=== PATIENT | male | born 1945 | race Asian ===

== ENCOUNTER 2018-05-13 12:38 | Inpatient (IN) | payer MEDICARE, OTHER ==
[2018-05-13 13:19] LABS: BASOPHILE ABSOLUTE 0.2 Th/cumm (0-0.2); MEAN CELL VOLUME 99.5 fl (80-99); MEAN CORPUSCULAR HEMOGLOBIN 33.2 pg (27.0-31.0); MEAN CORPUSCULAR HGB CONC 33.4 pg (28.0-36.0); MEAN PLATELET VOLUME 6.4 fl; MONOCYTE ABSOLUTE 1.8 Th/cmm (0.3-1.0); NEUTROPHILE ABSOLUTE 20.4 Th/cmm (1.8-8.0); PLATELET COUNT 345 Th/cmm (150-400); RED BLOOD COUNT 3.92 Mil/cmm (3.80-5.80); RED CELL DISTRIBUTION WIDTH 11.7 % (11.5-20.0)
--- NOTE | 2018-05-13 13:19 | ED Physician Chart ---
ED Chief Complaint/HPI - Patient Information Date Seen:: 05/13/18 Time Seen:: 12:55 Chief Complaint:: having trouble urinating History of Present Illness:: this is a 73 yo male with the sudden onset of difficulty with urination. he has a history of hypertension but no heart disease. the patient also has a fever. this patient also has diabetes. Allergies:: Allergies Allergy/AdvReac Type Severity Reaction Status Date / Time No Known Allergies Allergy Verified 05/13/18 12:49 Vitals:: Vital Signs - 8 hr 05/13/18 12:49 Temp 100.3 F HR 108 RR 18 BP 125/72 O2 Sat % 97 Historian:: Patient, Family Member (daughter) Review:: Nurse's Note Reviewed ED Review of Systems - Review of Systems General/Constitutional: No fever, No chills, No weight loss, No weakness, No diaphoresis, No edema, No loss of appetite Skin: No skin lesions, No rash, No bruising Head: No headache, No light-headedness Eyes: No loss of vision, No pain, No diplopia ENT: No earache, No nasal drainage, No sore throat, No tinnitus Neck: No neck pain, No swelling, No thyromegaly, No stiffness, No mass noted Cardio Vascular: No chest pain, No palpitations, No PND, No orthopnea, No edema Pulmonary: No SOB, No cough, No sputum, No wheezing GI: No nausea, No vomiting, No diarrhea, No pain, No melena, No hematochezia, No constipation, No hematemesis G/U: Dysuria, No frequency, No hematuria Musculoskeletal: No bone or joint pain, No back pain, No muscle pain Endocrine: No polyuria, No polydipsia Psychiatric: No prior psych history, No depression, No anxiety, No suicidal ideation Hematopoietic: No bruising, No lymphadenopathy Allergic/Immuno: No urticaria, No angioedema Neurological: No syncope, No focal symptoms, No weakness, No paresthesia, No headache, No seizure, No dizziness, No confusion, No vertigo ED Past Medical History - Past Medical History Obtainable: Yes Past Medical History: HTN, DM Family History: None Social History: Non Smoker, No Alcohol, No Drug Use Family Medical History - Family Member Mother History Unknown: Yes ED Physical Exam - Physical Examination General/Constitutional: Awake, Well-developed, well-nourished, Alert, No distress, GCS 15, Non-toxic appearing, Ambulatory Head: Atraumatic Eyes: Lids, conjuctiva normal, PERRL, EOMI Skin: Nl inspection, No rash, No skin lesions, No ecchymosis, Well hydrated, No lymphadenopathy ENMT: External ears, nose nl, Nasal exam nl, Lips, teeth, gums nl Neck: Nontender, Full ROM w/o pain, No JVD, No nuchal rigidity, No bruit, No mass, No stridor Respiratory: Nl effort/Exclusion, Clear to Auscultation, No Wheeze/Rhonchi/Rales Cardio Vascular: RRR, No murmur, gallop, rubs, NL S1 S2 GI: No organomegaly, No hernia, Normal BS's, Nondistended, No mass/bruits, No McBurney tenderness Other GI comments:: there is generalized diffuse abdominal pain with distension : No CVA tenderness Other comments:: bladder area distention minimal tenderness of the abdomen Extremities: No tenderness or effusion, Full ROM, normal strength in all extremities, No edema, Normal digits & nails Neuro/Psych: Alert/oriented, DTR's symmetric, Normal sensory exam, Normal motor strength, Judgement/insight normal, Mood normal, Normal gait, No focal deficits Misc: Normal back, No paraspinal tenderness ED Labs/Radiology/EKG Results - Lab Results Results: Laboratory Tests 05/13/18 13:09 POC Glucose 361 H Abnormal Lab Results 05/13/18 05/13/18 05/13/18 13:00 13:05 13:05 WBC 23.4 H* RBC 3.92 Hgb 13.0 Hct 39.0 L MCV 99.5 H MCH 33.2 H MCHC Differential 33.4 RDW 11.7 Plt Count 345 MPV 6.4 Add Manual Diff YES Band Neutrophils % 3 Neutrophils (Manual) 86 H Lymphocytes 8 L Monocytes 3 PT 11.2 INR 1.08 PTT (Actin FS) 32.7 Sodium Potassium Chloride Carbon Dioxide Anion Gap BUN Creatinine Est GFR ( Amer) Est GFR (Non-Af Amer) BUN/Creatinine Ratio Glucose POC Glucose Whole Bld Lactic Acid Calcium Total Bilirubin AST ALT Alkaline Phosphatase Troponin I Total Protein Albumin Globulin Albumin/Globulin Ratio Amylase TSH Urine Source [place] Urine Color YELLOW Urine Clarity HAZY Urine pH 5.5 Ur Specific [place] 1.025 Urine Protein 100 H Urine Glucose (UA) 100 H Urine Ketones NEGATIVE Urine Blood MODERATE H Urine Nitrate NEGATIVE Urine Bilirubin SMALL H Urine Urobilinogen 1.0 Ur Leukocyte Esterase SMALL H Urine RBC NONE SEEN Urine WBC 2-5 Ur Epithelial Cells NONE SEEN Urine Bacteria OCCASIONAL 05/13/18 05/13/18 05/13/18 13:05 13:05 13:05 WBC RBC Hgb Hct MCV MCH MCHC Differential RDW Plt Count MPV Add Manual Diff Band Neutrophils % Neutrophils (Manual) Lymphocytes Monocytes PT INR PTT (Actin FS) Sodium 126 L Potassium 3.8 Chloride 89 L Carbon Dioxide 26.4 Anion Gap 14.4 BUN 30 H Creatinine 1.7 H Est GFR ( Amer) TNP Est GFR (Non-Af Amer) TNP BUN/Creatinine Ratio 17.6 Glucose 363 H POC Glucose Whole Bld Lactic Acid Calcium 9.8 Total Bilirubin 1.4 H AST 14 ALT 12 Alkaline Phosphatase 52 Troponin I 0.04 Total Protein 7.8 Albumin 4.0 L Globulin 3.8 Albumin/Globulin Ratio 1.1 Amylase TSH 0.84 Urine Source Urine Color Urine Clarity Urine pH Ur Specific [place] Urine Protein Urine Glucose (UA) Urine Ketones Urine Blood Urine Nitrate Urine Bilirubin Urine Urobilinogen Ur Leukocyte Esterase Urine RBC Urine WBC Ur Epithelial Cells Urine Bacteria 05/13/18 05/13/18 05/13/18 13:05 13:09 13:10 WBC RBC Hgb Hct MCV MCH MCHC Differential RDW Plt Count MPV Add Manual Diff Band Neutrophils % Neutrophils (Manual) Lymphocytes Monocytes PT INR PTT (Actin FS) Sodium Potassium Chloride Carbon Dioxide Anion Gap BUN Creatinine Est GFR ( Amer) Est GFR (Non-Af Amer) BUN/Creatinine Ratio Glucose POC Glucose 361 H Whole Bld Lactic Acid 1.76 Calcium Total Bilirubin AST ALT Alkaline Phosphatase Troponin I Total Protein Albumin Globulin Albumin/Globulin Ratio Amylase 21 L TSH Urine Source Urine Color Urine Clarity Urine pH Ur Specific [place] Urine Protein Urine Glucose (UA) Urine Ketones Urine Blood Urine Nitrate Urine Bilirubin Urine Urobilinogen Ur Leukocyte Esterase Urine RBC Urine WBC Ur Epithelial Cells Urine Bacteria - Radiology Results Results: ct scan = distended stomach gallstones enlarged prostate chest x-ray = cardiomegaly - EKG Interpretations EKG Time:: 14:40 Rate & Rhythm: rate= 100, sinus [place]: right ED Assessment - Assessment General Assessment: fever, gastric distention, uti ED Septic Shock - . Is Septic Shock (SBP<90, OR Lactate>4 mmol\L) present?: No - <6hrs of presentation: Vital Signs: Vital Signs - 8 hr 05/13/18 12:49 Temp 100.3 F HR 108 RR 18 BP 125/72 O2 Sat % 97 ED Reassessment (Disposition) - Reassessment Reassessment Condition:: Improved - Diagnosis Diagnosis:: fever urinary tract infection diabetes hypertension enlarged prostate dehydrated - Patient Disposition Discharge/Transfer:: Acute Care w/in this hosp Admitting Medical Physician:: Bárbara Mattson Condition at Disposition:: Improved
[2018-05-13 13:21] LABS: WHITE BLOOD COUNT 23.4 Th/cmm (4.8-10.8)
[2018-05-13] MEDS ORDERED: Acetaminophen 500 MG TAB PO ONE (13:22)
[2018-05-13] MEDS ORDERED: Acetaminophen 500 MG TAB ONE (13:25)
[2018-05-13 13:34] LABS: URINE SOURCE MIDSTREAM
[2018-05-13 13:36] LABS: INR 1.08 (0.5-1.4); PROTHROMBIN TIME (TEST) 11.2 SECONDS (9.5-11.5)
[2018-05-13 13:37] LABS: ALB/GLOB RATIO 1.1 (1.0-1.8); ALKALINE PHOSPHATASE 52 U/L (34-104); ANION GAP 14.4 (7.0-16.0); BILIRUBIN,TOTAL 1.4 mg/dL (0.3-1.0); BUN - UREA NITROGEN 30 mg/dL (7-25); CALCIUM SERUM 9.8 mg/dL (8.6-10.3); CARBON DIOXIDE 26.4 mEq/L (21.0-31.0); CHLORIDE 89 mEq/L (98-107); CREATININE - SERUM 1.7 mg/dL (0.7-1.3); GLUCOSE 363 mg/dL (70-105); POTASSIUM SERUM 3.8 mEq/L (3.5-5.1); SGOT 14 U/L (13-39); SGPT/ALT 12 U/L (7-52); SODIUM SERUM 126 mEq/L (136-145); TOTAL PROTEIN,SERUM 7.8 gm/dL (6.0-8.3)
[2018-05-13 13:37] LABS: URINE BILIRUBIN SMALL (NEGATIVE); URINE BLOOD MODERATE (NEGATIVE); URINE GLUCOSE (UA) 100 mg/dL (NEGATIVE); URINE KETONE NEGATIVE (NEGATIVE); URINE LEUKOCYTE ESTERASE SMALL (NEGATIVE); URINE MICROSCOPIC INDICATED? YES; URINE NITRATE NEGATIVE (NEGATIVE); URINE PH 5.5 (4.6 - 8.0); URINE PROTEIN 100 mg/dL (NEGATIVE)
[2018-05-13 13:44] LABS: URINE CLARITY HAZY (CLEAR); URINE COLOR YELLOW
[2018-05-13 13:45] LABS: URINE EPITHELIAL CELLS NONE SEEN /lpf (FEW); URINE RBC NONE SEEN /hpf (0-5)
[2018-05-13 13:46] LABS: URINE BACTERIA OCCASIONAL /hpf (NONE SEEN)
[2018-05-13 13:47] LABS: BAND NEUTROPHILE 3 % (0-10); LYMPHOCYTE 8 % (20-50); MONOCYTE 3 % (2-10); NEUTROPHILS 86 % (40-80)
[2018-05-13] MEDS ORDERED: Sodium Chloride 0.9% 1,000 ML IV ONE (13:58)
[2018-05-13] MEDS ORDERED: Potassium Chloride Elixir 20 mEq /15 mL UDC PO ONE (13:59)
[2018-05-13] MEDS ORDERED: Potassium Chloride Elixir 20 mEq /15 mL UDC ONE (14:19)
[2018-05-13] MEDS ORDERED: Sodium Chloride 0.45% 1,000 ML IV ONE (16:23)
[2018-05-13] MEDS: cefTRIAXone 1 GM in 0.9% NS 50 ML IV SCH (17:08)
[2018-05-13] MEDS: INSULIN ASPART SLIDING SCALE 100 UNITS/ML UNIT SUBQ SCH (17:13)
[2018-05-13 17:42] VITALS: BP 131/60
[2018-05-13 20:57] LABS: URINE SOURCE CATH
[2018-05-13 21:00] LABS: URINE BILIRUBIN NEGATIVE (NEGATIVE); URINE BLOOD MODERATE (NEGATIVE); URINE GLUCOSE (UA) 250 mg/dL (NEGATIVE); URINE KETONE NEGATIVE (NEGATIVE); URINE LEUKOCYTE ESTERASE NEGATIVE (NEGATIVE); URINE MICROSCOPIC INDICATED? YES; URINE NITRATE NEGATIVE (NEGATIVE); URINE PH 5.5 (4.6 - 8.0); URINE PROTEIN TRACE mg/dL (NEGATIVE); URINE UROBILINOGEN 0.2 E.U./dL (0.2 - 1.0)
[2018-05-13 21:03] LABS: URINE CLARITY CLEAR (CLEAR); URINE COLOR YELLOW
[2018-05-13 21:06] LABS: URINE BACTERIA FEW /hpf (NONE SEEN); URINE EPITHELIAL CELLS FEW /lpf (FEW); URINE WBC 0-2 /hpf (0-5)
[2018-05-14] MEDS: INSULIN ASPART SLIDING SCALE 100 UNITS/ML UNIT SUBQ SCH ×4 (01:19→17:00)
[2018-05-14] MEDS ORDERED: [UNRECOGNIZED DRUG - OTHER] PO SCH (09:00)
[2018-05-14] MEDS: INSULIN HUMAN ISOPHANE (NPH) 100 UNITS/ML SUBQ SCH ×2 (09:29→16:58)
--- NOTE | 2018-05-14 10:27 | Diagnostic Imaging Report ---
Exam: CT examination of the pelvis. HISTORY: Abdominal pain. Total DLP equals 5 16 CTDI equals 10.0 Progress 5: Multiple contiguous thin section abdomen pelvis obtained from lower thorax to pubic symphysis without the administration of intravenous or oral contrast material, no prior studies available comparison. The study demonstrates normal aeration of lung parenchyma the bases There is evidence for cholelithiasis. The stomach distended with food content. The visualized spleen is intact. Atherosclerotic vascular calcifications noted. The kidneys demonstrate no evidence of obstructive uropathy. Perinephric confirmatory changes might be related to pyelonephritis There is evidence for multiple right renal cysts. There is no evidence of diverticular disease of diverticulitis. Appendix not visualized. Urinary bladder is distended. Prostate gland enlargement impinging the urinary bladder floor intubation of the bladder floor cannot be excluded. Calcification seminal vesicles appreciated. IMPRESSION: Cholelithiasis. Question of pyelonephritis. Diffuse atherosclerotic disease of the vascular structures throughout. Enlarged prostate gland, question of invasion of the bladder floor.
[2018-05-14 10:40] LABS: HEMATOCRIT 36.8 % (41.0-60); HEMOGLOBIN 11.9 gm/dL (12-16); LYMPHOCYTE ABSOLUTE 0.9 Th/cmm (1.5-3.0); MEAN CELL VOLUME 98.8 fl (80-99); MEAN CORPUSCULAR HGB CONC 32.4 pg (28.0-36.0); MONOCYTE ABSOLUTE 1.4 Th/cmm (0.3-1.0); NEUTROPHILE ABSOLUTE 18.8 Th/cmm (1.8-8.0); PLATELET COUNT 324 Th/cmm (150-400); RED BLOOD COUNT 3.73 Mil/cmm (3.80-5.80)
[2018-05-14 10:43] LABS: WHITE BLOOD COUNT 21.1 Th/cmm (4.8-10.8)
--- NOTE | 2018-05-14 10:46 | Diagnostic Imaging Report ---
Exam: Chest x-ray HISTORY: Hypertension. Findings: Frontal examination of chest was reviewed, no prior studies available comparison. The study demonstrates cardiomegaly. Blunting left costophrenic angle suggestive of effusion and infiltrate. Clinical correlation follow-up dictation recommended. Bony thorax intact. The arch calcified. Mild congestion cannot be excluded. IMPRESSION: Cardiomegaly, question of mild congestion. Left lower lobe infiltrate and effusion, follow-up examination recommended
[2018-05-14 10:52] LABS: ALBUMIN 3.6 gm/dL (4.2-5.5); ALKALINE PHOSPHATASE 57 U/L (34-104); ANION GAP 15.9 (7.0-16.0); BAND NEUTROPHILE 10 % (0-10); BILIRUBIN,TOTAL 1.1 mg/dL (0.3-1.0); BUN - UREA NITROGEN 28 mg/dL (7-25); CALCIUM SERUM 9.4 mg/dL (8.6-10.3); CARBON DIOXIDE 22.9 mEq/L (21.0-31.0); CHLORIDE 96 mEq/L (98-107); CREATININE - SERUM 1.4 mg/dL (0.7-1.3); GLUCOSE 268 mg/dL (70-105); LYMPHOCYTE 4 % (20-50); MONOCYTE 4 % (2-10); NEUTROPHILS 82 % (40-80); POTASSIUM SERUM 3.8 mEq/L (3.5-5.1); SGOT 44 U/L (13-39); SGPT/ALT 34 U/L (7-52); SODIUM SERUM 131 mEq/L (136-145); TOTAL PROTEIN,SERUM 7.3 gm/dL (6.0-8.3)
[2018-05-14] MEDS ORDERED: VTE Chemical Prophylaxis Screen/Admission MC PRN (12:05)
[2018-05-14] MEDS: Potassium Chloride 10 mEq ER Tab PO SCH (13:14)
[2018-05-14] MEDS: Hydrocodone/APAP 5mg/325mg Tab PO PRN (13:18)
[2018-05-14] MEDS ORDERED: Probiotic Screen MC PRN (14:56)
[2018-05-14] MEDS: Lactobacillus Rhamnosus GG 15 Billion CFU CAP.SPRINK PO SCH (15:40)
[2018-05-14] MEDS: cefTRIAXone 1 GM in 0.9% NS 50 ML IV SCH (17:02)
--- NOTE | 2018-05-14 20:34 | Consultation ---
DATE OF CONSULTATION: AGE: 73 years. SEX: Male. RACE: [place] from [facility] REQUESTING PHYSICIAN: Dr. Mattson. REASON FOR CONSULTATION: Increasing BUN and creatinine with inability to urinate and distention of the lower abdomen. HISTORY OF PRESENT ILLNESS: This patient had been having problem with urinating, came yesterday and I was asked to see the patient yesterday. The patient was advised to have a Mendoza catheter, which drained about 500 mL immediately and then patient pulled out his Mendoza catheter. The patient has been able to urinate, but very small. He complains about some discomfort and pain. The patient has been having this problem for about a week or maybe even longer. We don't know. On direct questioning, the history reveals the patient had diabetes for a long time, young fellow and he still has diabetes. The patient also has problems with hypertension. In addition to that, the patient had had hypertension for 20-30 years. SOCIAL HISTORY: In the past, the patient was also smoking for 20-30 years about 2 packs of cigarettes every day. The patient has been also drinking alcohol, but not that much. He denies any other problems at present time. He does not work. He is "retired" and he lives in between [facility] and [facility]. He just arrived to [place] about couple of days ago. REVIEW OF SYSTEMS: On direct questioning further, the patient states he does not have any other problem except for urinating and he does have some discomfort or pain and he is not able to urinate well. Denies any chest pain, shortness of breath, any palpitations or any other associated problems. On further questioning, denies any injuries, so anything else. He did not tell me much about his medications, but as per the history written here, he has not been in the hospital lately. He denies any urinary problems in the past. PHYSICAL EXAMINATION: GENERAL: Reveals the patient to be conscious, cooperative, alert, and aware. NECK: Jugular venous pressure is not raised. Oropharynx is clear. NEUROLOGIC: Cranial nerves seem to be intact. CHEST: Reveals good air entry bilaterally. CARDIOVASCULAR: Heart sounds, S1, S2 normally heard. No S3 or S4 noted. ABDOMEN: Soft, large. There could be ascites cannot be ruled out. Heart sounds S1, S2 normally heard. No S3 or S4 noticed. EXTREMITIES: Lower extremities does not reveal any pedal edema. There is some mild tenderness in the suprapubic area, which is rather vague. LABORATORY DATA: Considering above the impression remains as probably. Urinary tract obstruction with renal insufficiency and failure. BIOCHEMICAL DATA: Available has been as follows: The patient had a TSH done, which was 0.84. Sodium 126, creatinine 1.7, potassium 3.8, chloride 89, CO2 content 26, BUN 30, blood sugar 363, albumin 4.0. Liver enzymes essentially normal. Bilirubin total 1.4, lactic acid 1.76. Troponin 0.04. CBC reveals a hemoglobin of 13.0. WBC count 23.4, platelet count 345, neutrophils 86%. Urine examination reveals a glucose 100, moderate amount of blood, protein 100, leukocyte esterase is small, wbc's 2-5, bacteria occasional, specific gravity 1.025. IMPRESSION: 1. Considering that there seems to be a definite problem with urinary tract obstruction. 2. Possible urinary tract infection. 3. Leukocytosis suggesting underlying infection. 4. Hypertension. 5. Diabetes mellitus. 6. Problem with possibly urinary tract infection. PLAN: 1. Ultrasound of the pelvis and abdomen including prostate to evaluate. 2. Postvoid ultrasound also as to evaluate residual. 3. May consider putting in a Mendoza catheter if he has a problem. 4. May put him on some terazosin, so as to reduce the obstruction. The patient, of course, need to be treated for diabetes, hypertension and also leukocytosis. JOB# [id number]
[2018-05-14] MEDS ORDERED: VERAPAMIL HCL PO SCH (21:00)
[2018-05-15] MEDS: INSULIN ASPART SLIDING SCALE 100 UNITS/ML UNIT SUBQ SCH ×4 (00:32→17:35)
[2018-05-15] MEDS: Hydrocodone/APAP 5mg/325mg Tab PO PRN ×4 (03:20→22:22)
--- NOTE | 2018-05-15 03:53 | Consultation ---
DATE OF CONSULTATION: 05/14/2018 REFERRING PHYSICIAN: Dr. Mattson. REASON FOR CONSULTATION: Leukocytosis and UTI. HISTORY OF PRESENT ILLNESS: The patient is a 73-year-old male with a past medical history of hypertension, diabetes mellitus, presented to the ER for onset of difficulty with urination. Also complained of some fever. On initial evaluation, the patient's temperature was 100.3 degrees Fahrenheit and heart rate was 108 and WBC count was 23,400 with neutrophil 86%. Lactic acid was 1.76. Chest x-ray showed cardiomegaly with mild congestion. Left lower lobe infiltrate and effusion. CT scan of the abdomen and pelvis revealed cholelithiasis, question of pyelonephritis. Enlarge prostate with question of invasion to the bladder floor. The patient also found to have increased creatinine. Urinalysis showed pyuria. Urinalysis suggest hematuria. Mendoza catheter put in and 500 mL of urine came out. The patient was started on Hytrin and Rocephin. The patient has better urination. ID consult was called for leukocytosis. PAST MEDICAL HISTORY: Diabetes mellitus type 2 and hypertension. MEDICATIONS: As per medication reconciliation sheet, antibiotic escuedro, the patient is receiving Rocephin. FAMILY HISTORY: Noncontributory. SOCIAL HISTORY: The patient denies any smoking, alcohol or drug use. REVIEW OF SYSTEMS: GENERAL: The patient has no fever, no chills, no weight loss, no generalized weakness, no diaphoresis. No loss of appetite. HEENT: No diplopia, no photophobia, no sore throat, no congestion. The patient has no earache or ear discharge. No eye discharge. RESPIRATORY: The patient has no cough, no shortness of breath. CVS: The patient has no chest pain, no palpitation. No leg swelling. GASTROINTESTINAL: No nausea, no vomiting, no diarrhea, no constipation.: No abdominal pain. MUSCULOSKELETAL: No muscle pain, no joint pain. NEUROLOGIC: No headache, no dizziness, no focal weakness. GENITOURINARY: The patient has dysuria and problem passing urine, it is getting better. No hematuria. PHYSICAL EXAMINATION: VITAL SIGNS: Currently shows temperature is 97.3, pulse 89, respirations 17, blood pressure 132/74. GENERAL: The patient is comfortable lying in the bed, not in acute distress. HEENT: Head is normocephalic, atraumatic. Oral cavity moist, pink tongue. Eyes: No pallor, no icterus. Pupils PERRLA, EOMI. NECK: Supple, no JVD, no carotid bruit. Trachea in midline. CHEST: Bilateral breath sounds. No crackles or wheezing. CARDIOVASCULAR: S1, S2 within normal limits. Regular rhythm. No murmur or gallop. ABDOMEN: Soft, nontender, nondistended. Bowel sounds present. MUSCULOSKELETAL: Patient has no spinal or CVA tenderness. EXTREMITIES: No cyanosis, no clubbing, no edema. NEUROLOGIC: Alert, awake, oriented x3. LABORATORY DATA: Current lab shows WBC count 21,100, hemoglobin 11.9, hematocrit 36.8, platelets are 324,000, neutrophil is 82%. INR 1.08. Sodium is 131, potassium 3.8, chloride 96, bicarbonate is 23, BUN is 28, creatinine 1.4, glucose 268 and LFTs are reviewed. Urinalysis showed his urine with blood, moderate; small leukoesterase and RBC none, WBC 2-5. Urinalysis showed blood, moderate and rbc 5-10 and WBC 0-2 and few bacteria. As mentioned above, CT scan of the abdomen and pelvis revealed enlarged prostate in approaching the bladder floor. Questionable pyelonephritis and cholelithiasis. Pelvic ultrasound also showed enlarged prostate. Chest x-ray showed cardiomegaly ____ congestion, left lower lobe infiltrate and effusion. IMPRESSION: 1. Leukocytosis, most likely reactive versus sepsis. Blood cultures are pending. 2. May have left lower lobe pneumonia. 3. May have urinary tract infection, pyelonephritis. 4. BPH. 5. Difficultly urination, most likely due to benign prostatic hypertrophy. 6. Hypertension. 7. Diabetes mellitus type 2. RECOMMENDATIONS: Continue Rocephin. Repeat the chest x-ray in the morning. Thank you, Dr. Mattson for involving me in taking care of this patient. JOB# [id number]
[2018-05-15 06:15] LABS: HEMATOCRIT 32.9 % (41.0-60); HEMOGLOBIN 11.1 gm/dL (12-16); MEAN CELL VOLUME 98.4 fl (80-99); MEAN CORPUSCULAR HEMOGLOBIN 33.2 pg (27.0-31.0); MEAN CORPUSCULAR HGB CONC 33.7 pg (28.0-36.0); PLATELET COUNT 321 Th/cmm (150-400); RED BLOOD COUNT 3.35 Mil/cmm (3.80-5.80); RED CELL DISTRIBUTION WIDTH 12.1 % (11.5-20.0)
[2018-05-15 06:46] LABS: ALBUMIN 3.6 gm/dL (4.2-5.5); ALKALINE PHOSPHATASE 67 U/L (34-104); ANION GAP 14.2 (7.0-16.0); BILIRUBIN,TOTAL 1.1 mg/dL (0.3-1.0); BUN - UREA NITROGEN 31 mg/dL (7-25); CALCIUM SERUM 9.3 mg/dL (8.6-10.3); CARBON DIOXIDE 25.3 mEq/L (21.0-31.0); CHLORIDE 98 mEq/L (98-107); CREATININE - SERUM 1.5 mg/dL (0.7-1.3); GLUCOSE 198 mg/dL (70-105); POTASSIUM SERUM 3.5 mEq/L (3.5-5.1); SGOT 83 U/L (13-39); SGPT/ALT 81 U/L (7-52); SODIUM SERUM 134 mEq/L (136-145); TOTAL PROTEIN,SERUM 7.2 gm/dL (6.0-8.3)
[2018-05-15 08:16] LABS: BAND NEUTROPHILE 1 % (0-10); NEUTROPHILS 84 % (40-80)
[2018-05-15 08:17] LABS: LYMPHOCYTE 8 % (20-50); MONOCYTE 7 % (2-10)
--- NOTE | 2018-05-15 08:19 | Diagnostic Imaging Report ---
Portable chest x-ray HISTORY: Cough Compared with prior exam of May 13, 2018, persistent cardiomegaly. No definite focal pulmonary parenchymal processes. Atherosclerotic calcification seen within the aorta. IMPRESSION: 1. Persistent cardiomegaly with atherosclerotic vascular changes 2. No definite focal pulmonary parenchymal processes
--- NOTE | 2018-05-15 08:29 | Diagnostic Imaging Report ---
Ultrasound, urinary bladder HISTORY: Urinary retention No intraluminal abnormality seen within the urinary bladder. Post void residual could not be evaluated due to patient incontinent. The prostate gland appears somewhat enlarged (4.5 x 5.3 x 3.7 cm). This results in encroachment on the floor of the urinary bladder. No significant urinary bladder wall thickening. IMPRESSION: 1. Enlarged prostate gland 2. Post void urine residual could not be evaluated due to patient incontinence.
[2018-05-15] MEDS: Lactobacillus Rhamnosus GG 15 Billion CFU CAP.SPRINK PO SCH (08:49)
[2018-05-15] MEDS: Potassium Chloride 10 mEq ER Tab PO SCH (08:50)
[2018-05-15] MEDS: INSULIN HUMAN ISOPHANE (NPH) 100 UNITS/ML SUBQ SCH ×2 (08:50→16:25)
--- NOTE | 2018-05-15 14:01 | Infectious Disease Prog Note ---
Infectious Disease Subjective - Review of Systems Service Date: 05/15/18 Subjective: No fever. no chills. Infectious Disease Objective - Results Result Diagrams: 05/15/18 05:54 05/15/18 05:54 Recent Labs: Laboratory Last Values WBC 16.0 Th/cmm (4.8-10.8) H D 05/15/18 05:54 RBC 3.35 Mil/cmm (3.80-5.80) L 05/15/18 05:54 Hgb 11.1 gm/dL (12-16) L 05/15/18 05:54 Hct 32.9 % (41.0-60) L 05/15/18 05:54 MCV 98.4 fl (80-99) 05/15/18 05:54 MCH 33.2 pg (27.0-31.0) H 05/15/18 05:54 MCHC Differential 33.7 pg (28.0-36.0) 05/15/18 05:54 RDW 12.1 % (11.5-20.0) 05/15/18 05:54 Plt Count 321 Th/cmm (150-400) 05/15/18 05:54 MPV 7.0 fl 05/15/18 05:54 Add Manual Diff YES 05/15/18 05:54 Neutrophils % WELD TECHNICIAN 05/15/18 05:54 Band Neutrophils % 1 % (0-10) 05/15/18 05:54 Lymphocytes % WELD TECHNICIAN 05/15/18 05:54 Monocytes % WELD TECHNICIAN 05/15/18 05:54 Eosinophils % WELD TECHNICIAN 05/15/18 05:54 Basophils % WELD TECHNICIAN 05/15/18 05:54 Neutrophils (Manual) 84 % (40-80) H 05/15/18 05:54 Lymphocytes 8 % (20-50) L 05/15/18 05:54 Monocytes 7 % (2-10) 05/15/18 05:54 PT 11.2 SECONDS (9.5-11.5) 05/13/18 13:05 INR 1.08 (0.5-1.4) 05/13/18 13:05 PTT (Actin FS) 32.7 SECONDS (26.0-38.0) 05/13/18 13:05 Sodium 134 mEq/L (136-145) L 05/15/18 05:54 Potassium 3.5 mEq/L (3.5-5.1) 05/15/18 05:54 Chloride 98 mEq/L (98-107) 05/15/18 05:54 Carbon Dioxide 25.3 mEq/L (21.0-31.0) 05/15/18 05:54 Anion Gap 14.2 (7.0-16.0) 05/15/18 05:54 BUN 31 mg/dL (7-25) H 05/15/18 05:54 Creatinine 1.5 mg/dL (0.7-1.3) H 05/15/18 05:54 Est GFR ( Amer) TNP 05/15/18 05:54 Est GFR (Non-Af Amer) TNP 05/15/18 05:54 BUN/Creatinine Ratio 20.7 05/15/18 05:54 Glucose 198 mg/dL (70-105) H 05/15/18 05:54 POC Glucose 174 MG/DL (70 - 105) H 05/15/18 12:00 Whole Bld Lactic Acid 1.76 mmol/L (0.60-1.99) 05/13/18 13:10 Calcium 9.3 mg/dL (8.6-10.3) 05/15/18 05:54 Total Bilirubin 1.1 mg/dL (0.3-1.0) H 05/15/18 05:54 AST 83 U/L (13-39) H 05/15/18 05:54 ALT 81 U/L (7-52) H 05/15/18 05:54 Alkaline Phosphatase 67 U/L (34-104) 05/15/18 05:54 Troponin I 0.04 ng/mL (0.01-0.05) 05/13/18 13:05 Total Protein 7.2 gm/dL (6.0-8.3) 05/15/18 05:54 Albumin 3.6 gm/dL (4.2-5.5) L 05/15/18 05:54 Globulin 3.6 gm/dL 05/15/18 05:54 Albumin/Globulin Ratio 1.0 (1.0-1.8) 05/15/18 05:54 Amylase 21 U/L (29-103) L 05/13/18 13:05 TSH 0.84 uIU/ml (0.34-5.60) 05/13/18 13:05 Urine Source CATH 05/13/18 20:38 Urine Color YELLOW 05/13/18 20:38 Urine Clarity CLEAR (CLEAR) 05/13/18 20:38 Urine pH 5.5 (4.6 - 8.0) 05/13/18 20:38 Ur Specific [place] 1.015 (1.005-1.030) 05/13/18 20:38 Urine Protein TRACE mg/dL (NEGATIVE) 05/13/18 20:38 Urine Glucose (UA) 250 mg/dL (NEGATIVE) H 05/13/18 20:38 Urine Ketones NEGATIVE mg/dL (NEGATIVE) 05/13/18 20:38 Urine Blood MODERATE (NEGATIVE) H 05/13/18 20:38 Urine Nitrate NEGATIVE (NEGATIVE) 05/13/18 20:38 Urine Bilirubin NEGATIVE (NEGATIVE) 05/13/18 20:38 Urine Urobilinogen 0.2 E.U./dL (0.2 - 1.0) 05/13/18 20:38 Ur Leukocyte Esterase NEGATIVE (NEGATIVE) 05/13/18 20:38 Urine RBC 5-10 /hpf (0-5) H 05/13/18 20:38 Urine WBC 0-2 /hpf (0-5) 05/13/18 20:38 Ur Epithelial Cells FEW /lpf (FEW) 05/13/18 20:38 Urine Bacteria FEW /hpf (NONE SEEN) 05/13/18 20:38 - Physical Exam Vitals and I&O: Vital Signs Temp 98.1 F 05/15/18 12:14 Pulse 103 05/15/18 12:14 Resp 18 05/15/18 12:14 BP 132/66 05/15/18 12:14 Pulse Ox 94 05/15/18 12:14 Intake & Output 05/14/18 05/15/18 05/15/18 18:59 06:59 18:59 Intake Total 1850 425 Output Total 350 650 Balance 1500 -225 Weight (lbs) 80.739 kg 78.199 kg Intake: Intake, IV Amount 50 [id number] 1 gm In 50 Sodium Chloride 0.9% 50 ml @ 100 mls/hr IV Q24HR ANITA Rx#:[id number] Oral 1800 425 Output: Urine 350 650 Other: # Bowel Movements 0 Weight Source Bedscale Bedscale Active Medications: Current Medications Acetaminophen (Tylenol) 650 mg PO Q6H PRN PRN Reason: Pain (Mild) Stop: 07/13/18 11:05 Acetaminophen/Hydrocodone Bitart (S[place]ent 5mg/325mg) 1 tab PO Q4H PRN PRN Reason: Pain (Moderate) Stop: 07/13/18 11:04 Last Admin: 05/15/18 11:36 Dose: 1 tab Clopidogrel Bisulfate (Plavix) 75 mg PO DAILY ANITA Stop: 07/13/18 08:59 Last Admin: 05/15/18 08:50 Dose: 75 mg Famotidine (Pepcid) 20 mg PO BID ANITA Stop: 07/13/18 08:59 Last Admin: 05/15/18 08:50 Dose: 20 mg Heparin Sodium (Porcine) (Heparin) 5,000 units SUBQ Q12HR ANITA Stop: 07/13/18 20:59 Last Admin: 05/15/18 08:50 Dose: 5,000 units Ceftriaxone Sodium 1 gm/ (Sodium Chloride) 50 mls @ 100 mls/hr IV Q24HR ANITA Stop: 07/12/18 16:59 Last Infusion: 05/14/18 17:32 Dose: Infused Insulin Aspart (Novolog Insulin Sliding Scale) 0 units SUBQ Q6HR [facility]; Protocol Stop: 07/12/18 17:59 Last Admin: 05/15/18 13:16 Dose: 2 units Insulin Human NPH (Novolin N) 40 units SUBQ BID [facility]; Protocol Stop: 07/13/18 08:59 Last Admin: 05/15/18 08:50 Dose: 40 units Lactobacillus Rhamnosus (Culturelle 15b) 1 each PO DAILY ANITA Stop: 07/13/18 14:59 Last Admin: 05/15/18 08:49 Dose: 1 each Lisinopril (Zestril) 20 mg PO DAILY ANITA Stop: 07/13/18 08:59 Last Admin: 05/15/18 08:49 Dose: 20 mg Miscellaneous (Vte Chemical Prophylaxis Screen/ Admission) 1 ea PRN PRN PRN Reason: PROTOCOL Stop: 07/13/18 12:04 Miscellaneous (Probiotic Screen) 1 ea PRN PRN PRN Reason: PROTOCOL Stop: 07/13/18 14:55 Potassium Chloride (Klor-Con) 10 meq PO DAILY [facility] Stop: 07/13/18 10:59 Last Admin: 05/15/18 08:50 Dose: 10 meq Simvastatin (Zocor) 40 mg PO HS [facility]ITA Stop: 07/13/18 20:59 Last Admin: 05/14/18 20:20 Dose: 40 mg Terazosin HCl (Hytrin) 1 mg PO BID@0800,1900 [facility] Stop: 07/14/18 07:59 Last Admin: 05/15/18 08:50 Dose: 1 mg General: no acute distress, well developed, well nourished HEENT: atraumatic, normocephalic, PERRLA, EOMI Neck: supple, no thyromegaly Cardiovascular: S1S2, regular Lungs: clear to auscultation bilaterally, clear to percussion Abdomen: soft, no tender, no distended, no mass, no rebound Extremities: no cyanosis, no clubbing, no edema Neurological: awake, alert, oriented Skin: intact Infectious Disease Assmt/Plan - Assessment Assessment: 1. Leukocytosis, most likely reactive versus sepsis. Blood cultures are pending. 2. May have left lower lobe pneumonia. 3. May have urinary tract infection, pyelonephritis. 4. BPH. 5. Difficultly urination, most likely due to benign prostatic hypertrophy. 6. Hypertension. 7. Diabetes mellitus type 2. - Plan Plan: Continue Rocephin.
[2018-05-15] MEDS: cefTRIAXone 1 GM in 0.9% NS 50 ML IV SCH (16:25)
--- NOTE | 2018-05-15 18:57 | Consultation ---
DATE OF CONSULTATION: UROLOGY CONSULTATION REASON FOR CONSULTATION: The patient was seen for urinary retention, UTI, and BPH. HISTORY OF PRESENT ILLNESS: This is a 73-year-old gentleman who was admitted through the Emergency Room for difficulty urinating, fever, and subsequently found to have retention. A Mendoza was placed with 500 mL of urine. Subsequently, the Mendoza was removed at his insistence and this morning, he again developed retention requiring the Mendoza to be reinserted. He now has bloody urine and is draining well. He admits to having nocturia, slow stream, and some difficulty ongoing for several days to months and unable to quantify the exact timeline. No previous prostate operations, treatment, infections, or hematuria that he can remember. PAST SURGICAL HISTORY: Appendectomy. PAST MEDICAL HISTORY: Diabetes and hypertension. HOME MEDICATIONS: Plavix, Pepcid, hydrochlorothiazide, insulin, lisinopril, vitamins, potassium supplement, Crestor, and verapamil. ALLERGIES: None. SOCIAL HISTORY: Used to smoke heavily in the past. He used to also take a lot of alcohol and is now retired in the [facility]. REVIEW OF SYSTEMS: No chest pain, coughing, or shortness of breath. Denied any weight loss, but admitted to fever at the time of admission. No abdominal pain, vomiting, or diarrhea. Did have significant dysuria and unable to urinate. No skin rashes or joint swelling. No headache or seizures. PHYSICAL EXAMINATION: GENERAL: On exam, is awake, alert, oriented. VITAL SIGNS: Temperature 98.1, heart rate 103, blood pressure 132/66, afebrile, since 05/13/2018 when it was 100.3. HEAD AND NECK: Normocephalic. Trachea central. Pupils equal and reactive. No jaundice. Thyroid and lymph nodes not palpable. Carotid bruit absent. CHEST: Symmetrical. LUNGS: Clear. No rales or rhonchi. HEART: Sounds normal in sinus rhythm, no murmur. ABDOMEN: Soft, nontender, no organomegaly, mass, or hernia. Bladder not palpable. Flanks nontender. GENITALIA: Normal male, no scrotal masses. Testes descended and normal. Mendoza catheter in place draining dark pink urine without clots. RECTAL: Sphincter tone normal. Prostate is enlarged about 40-50 grams, smooth, benign, and nontender. No nodules. I cannot reach the top of the gland. EXTREMITIES: No edema or lymphadenopathy. NEUROLOGIC: Nonfocal. Moves all 4 limbs. LABORATORY DATA: White count 21.1 on admission, today 16,000; hemoglobin 11.1; platelets 321; slight left shift, 1 band. Sodium 134. Other electrolytes normal. BUN 31, creatinine 1.5, yesterday 1.4. Liver functions mildly elevated bilirubin and enzymes. PT, PTT are normal. Urinalysis showed a lot of blood, but no other significant abnormalities. Culture is negative, both in the blood and urine. CT of the abdomen shows cholelithiasis and questionable pyelonephritis. There are multiple right renal cysts and a distended bladder with a large prostate. The prostate is indenting the floor of the bladder. Bladder ultrasound done yesterday shows a postvoid of 111 mL, large prostate, and the patient was incontinent at the time of the study. IMPRESSION: Bladder outlet obstruction, large benign prostatic hypertrophy, urinary retention, and hematuria. Recommend cystoscopy, possible TURP. Plavix will have to be held and medical clearance obtained. The procedure risks and complications were explained to the patient in great details. He is willing to proceed and delay his trip to the [facility]. Thank you for the referral. JOB# [id number]
--- NOTE | 2018-05-15 19:32 | History & Physical ---
ADMIT DATE: 05/13/2018 HISTORY OF PRESENT ILLNESS: The patient is a 73-year-old male patient, patient came to the Emergency Room known to have history of hypertension, diabetes, admitted because of difficulty in urination, dysuria. White count was high, was diagnosed to have UTI and possible prostatitis, possible pyelonephritis and urine showed hematuria. PAST MEDICAL HISTORY: Diabetes 2 and hypertension. MEDICATIONS: As in the contribution sheet. SOCIAL HISTORY: Unremarkable. REVIEW OF SYSTEMS: Complaining of dysuria, otherwise system review was negative. PHYSICAL EXAMINATION: VITAL SIGNS: Blood pressure was 132/74, respirations 17, pulse is 89, temperature 97.3. HEENT: Normal. NECK: Supple, nontender. LUNGS: Clear. CARDIOVASCULAR SYSTEM: S1, S2 heard. ABDOMEN: Soft, lower abdominal tenderness. LABORATORY DATA: White count was 21,000, neutrophils was high. The patient has enlarged prostate, pyelonephritis, and cholelithiasis. DIAGNOSES: Leukocytosis, basically possible UTI, left lower lobe pneumonia, BPH, urinary retention, diabetes 2, and hypertension. PLAN: The patient is going to be admitted and will control the diabetes, hypertension. I will give him IV antibiotics and allow Dr. Landis see the patient for ID. I will have Dr. David see the patient for Urology and I will follow the patient. JOB# [id number]
[2018-05-16] MEDS ORDERED: Hydrocodone/APAP 5mg/325mg Tab PO STA (00:45)
[2018-05-16] MEDS: INSULIN ASPART SLIDING SCALE 100 UNITS/ML UNIT SUBQ SCH ×2 (01:10→08:40)
[2018-05-16] MEDS: Hydrocodone/APAP 5mg/325mg Tab PO PRN ×3 (05:05→13:00)
[2018-05-16] MEDS: Potassium Chloride 10 mEq ER Tab PO SCH (09:00)
[2018-05-16] MEDS: Lactobacillus Rhamnosus GG 15 Billion CFU CAP.SPRINK PO SCH (09:00)
[2018-05-16] MEDS: INSULIN HUMAN ISOPHANE (NPH) 100 UNITS/ML SUBQ SCH (09:01)
--- NOTE | 2018-05-16 12:25 | Internal Medicine Prog Note ---
Internal Medicine Subjective - Subjective Service Date: 05/16/18 Patient seen and examined:: with staff Patient is:: awake Per staff patient has:: tolerating meds Internal Medicine Objective - Results Result Diagrams: 05/15/18 05:54 05/15/18 05:54 Recent Labs: Laboratory Last Values WBC 16.0 Th/cmm (4.8-10.8) H D 05/15/18 05:54 RBC 3.35 Mil/cmm (3.80-5.80) L 05/15/18 05:54 Hgb 11.1 gm/dL (12-16) L 05/15/18 05:54 Hct 32.9 % (41.0-60) L 05/15/18 05:54 MCV 98.4 fl (80-99) 05/15/18 05:54 MCH 33.2 pg (27.0-31.0) H 05/15/18 05:54 MCHC Differential 33.7 pg (28.0-36.0) 05/15/18 05:54 RDW 12.1 % (11.5-20.0) 05/15/18 05:54 Plt Count 321 Th/cmm (150-400) 05/15/18 05:54 MPV 7.0 fl 05/15/18 05:54 Add Manual Diff YES 05/15/18 05:54 Neutrophils % MORNING SHOW [employer] 05/15/18 05:54 Band Neutrophils % 1 % (0-10) 05/15/18 05:54 Lymphocytes % MORNING SHOW [employer] 05/15/18 05:54 Monocytes % MORNING SHOW [employer] 05/15/18 05:54 Eosinophils % MORNING SHOW [employer] 05/15/18 05:54 Basophils % MORNING SHOW [employer] 05/15/18 05:54 Neutrophils (Manual) 84 % (40-80) H 05/15/18 05:54 Lymphocytes 8 % (20-50) L 05/15/18 05:54 Monocytes 7 % (2-10) 05/15/18 05:54 PT 11.2 SECONDS (9.5-11.5) 05/13/18 13:05 INR 1.08 (0.5-1.4) 05/13/18 13:05 PTT (Actin FS) 32.7 SECONDS (26.0-38.0) 05/13/18 13:05 Sodium 134 mEq/L (136-145) L 05/15/18 05:54 Potassium 3.5 mEq/L (3.5-5.1) 05/15/18 05:54 Chloride 98 mEq/L (98-107) 05/15/18 05:54 Carbon Dioxide 25.3 mEq/L (21.0-31.0) 05/15/18 05:54 Anion Gap 14.2 (7.0-16.0) 05/15/18 05:54 BUN 31 mg/dL (7-25) H 05/15/18 05:54 Creatinine 1.5 mg/dL (0.7-1.3) H 05/15/18 05:54 Est GFR ( Amer) TNP 05/15/18 05:54 Est GFR (Non-Af Amer) TNP 05/15/18 05:54 BUN/Creatinine Ratio 20.7 05/15/18 05:54 Glucose 198 mg/dL (70-105) H 05/15/18 05:54 POC Glucose 131 MG/DL (70 - 105) H 05/16/18 12:10 Whole Bld Lactic Acid 1.76 mmol/L (0.60-1.99) 05/13/18 13:10 Calcium 9.3 mg/dL (8.6-10.3) 05/15/18 05:54 Total Bilirubin 1.1 mg/dL (0.3-1.0) H 05/15/18 05:54 AST 83 U/L (13-39) H 05/15/18 05:54 ALT 81 U/L (7-52) H 05/15/18 05:54 Alkaline Phosphatase 67 U/L (34-104) 05/15/18 05:54 Troponin I 0.04 ng/mL (0.01-0.05) 05/13/18 13:05 Total Protein 7.2 gm/dL (6.0-8.3) 05/15/18 05:54 Albumin 3.6 gm/dL (4.2-5.5) L 05/15/18 05:54 Globulin 3.6 gm/dL 05/15/18 05:54 Albumin/Globulin Ratio 1.0 (1.0-1.8) 05/15/18 05:54 Amylase 21 U/L (29-103) L 05/13/18 13:05 TSH 0.84 uIU/ml (0.34-5.60) 05/13/18 13:05 Urine Source CATH 05/13/18 20:38 Urine Color YELLOW 05/13/18 20:38 Urine Clarity CLEAR (CLEAR) 05/13/18 20:38 Urine pH 5.5 (4.6 - 8.0) 05/13/18 20:38 Ur Specific [place] 1.015 (1.005-1.030) 05/13/18 20:38 Urine Protein TRACE mg/dL (NEGATIVE) 05/13/18 20:38 Urine Glucose (UA) 250 mg/dL (NEGATIVE) H 05/13/18 20:38 Urine Ketones NEGATIVE mg/dL (NEGATIVE) 05/13/18 20:38 Urine Blood MODERATE (NEGATIVE) H 05/13/18 20:38 Urine Nitrate NEGATIVE (NEGATIVE) 05/13/18 20:38 Urine Bilirubin NEGATIVE (NEGATIVE) 05/13/18 20:38 Urine Urobilinogen 0.2 E.U./dL (0.2 - 1.0) 05/13/18 20:38 Ur Leukocyte Esterase NEGATIVE (NEGATIVE) 05/13/18 20:38 Urine RBC 5-10 /hpf (0-5) H 05/13/18 20:38 Urine WBC 0-2 /hpf (0-5) 05/13/18 20:38 Ur Epithelial Cells FEW /lpf (FEW) 05/13/18 20:38 Urine Bacteria FEW /hpf (NONE SEEN) 05/13/18 20:38 - Physical Exam Vitals and I&O: Vital Signs Temp 97.4 F 05/16/18 12:11 Pulse 91 05/16/18 12:11 Resp 17 05/16/18 12:11 BP 141/65 05/16/18 12:11 Pulse Ox 97 05/16/18 12:11 Intake & Output 05/15/18 05/16/18 05/16/18 18:59 06:59 18:59 Intake Total 1200 150 Output Total 1300 1400 Balance -100 -1250 Weight (lbs) 184 lb 4.8 oz 184 lb Intake: Oral 900 150 Other 300 Output: Urine 1300 1400 Other: # Bowel Movements 1 Weight Source Bedscale Bedscale Active Medications: Current Medications Acetaminophen (Tylenol) 650 mg PO Q6H PRN PRN Reason: Pain (Mild) Stop: 07/13/18 11:05 Last Admin: 05/15/18 14:16 Dose: 650 mg Acetaminophen/Hydrocodone Bitart (Merino 5mg/325mg) 1 tab PO Q4H PRN PRN Reason: Pain (Moderate) Stop: 07/15/18 04:05 Last Admin: 05/16/18 08:41 Dose: 1 tab Famotidine (Pepcid) 20 mg PO BID ANITA Stop: 07/13/18 08:59 Last Admin: 05/16/18 09:00 Dose: 20 mg Heparin Sodium (Porcine) (Heparin) 5,000 units SUBQ Q12HR ANITA Stop: 07/13/18 20:59 Last Admin: 05/16/18 09:10 Dose: Not Given Ceftriaxone Sodium 1 gm/ (Sodium Chloride) 50 mls @ 100 mls/hr IV Q24HR ANITA Stop: 07/12/18 16:59 Last Admin: 05/15/18 16:25 Dose: 100 mls/hr Insulin Aspart (Novolog Insulin Sliding Scale) 0 units SUBQ Q6HR [facility]; Protocol Stop: 07/12/18 17:59 Last Admin: 05/16/18 08:40 Dose: 2 units Insulin Human NPH (Novolin N) 40 units SUBQ BID [facility]; Protocol Stop: 07/13/18 08:59 Last Admin: 05/16/18 09:01 Dose: 40 units Lactobacillus Rhamnosus (Culturelle 15b) 1 each PO DAILY [facility] Stop: 07/13/18 14:59 Last Admin: 05/16/18 09:00 Dose: 1 each Lisinopril (Zestril) 20 mg PO DAILY [facility] Stop: 07/13/18 08:59 Last Admin: 05/16/18 09:00 Dose: 20 mg Miscellaneous (Vte Chemical Prophylaxis Screen/ Admission) 1 ea [facility] PRN PRN PRN Reason: PROTOCOL Stop: 07/13/18 12:04 Miscellaneous (Probiotic Screen) 1 ea [facility] PRN PRN PRN Reason: PROTOCOL Stop: 07/13/18 14:55 Potassium Chloride (Klor-Con) 10 meq PO DAILY ANITA Stop: 07/13/18 10:59 Last Admin: 05/16/18 09:00 Dose: 10 meq Simvastatin (Zocor) 40 mg PO HS ANITA Stop: 07/13/18 20:59 Last Admin: 05/15/18 22:22 Dose: 40 mg Terazosin HCl (Hytrin) 1 mg PO BID@0800,1900 ANITA Stop: 07/14/18 07:59 Last Admin: 05/16/18 08:39 Dose: 1 mg General: alert HEENT: NC/AT, PERRLA Neck: Supple Lungs: CTAB Cardiovascular: RRR, Normal S1, Normal S2, without murmur Abdomen: soft, non-tender, non-distended Neurological: alert Internal Medicine Assmt/Plan - Assessment Assessment: Leukocytosis, acute uti BPH. Difficultly urination, most likely due to benign prostatic hypertrophy. Hypertension. DM2 - Plan Plan: follow up labs in am monitor h/h ivabx as per id continue current plan of care Nutritional Asmnt/Malnutr-PDOC - Dietary Evaluation Malnutrition Findings (Please click <Entered> for more info): Nutritional Asmnt/Malnutrition Start: 05/15/18 14: 59 Text: Status: Complete Freq: Protocol: Document 05/15/18 14:59 UNA (Rec: 05/15/18 15:29 UNA SHAH) Nutritional Asmnt/Malnutrition Patient General Information Nutritional Screening High Risk Diagnosis urinary retention, dehydration , fever, diabetes Pertinent Medical Hx/Surgical Hx HTN, DM Subjective Information Pt laying in bed at time of visit w/ lunch at bedside. Nursing noted intake: 25-50% w / meal refusals. Pt states he dislikes the taste of the hospital food and did not want to eat lunch at this time. Offered sandwich, pt stated he will ask later if hungry. Current Diet Order/ Nutrition Support Renal Pertinent Medications pepcid, novolog, novolin, culturelle, klor-con, zocor Pertinent Labs 05/15: glucose 198, Na 134, BUN 31, Cr 1.5, POC 173, Alb 3.6 05/13: glucose 363, Na 126, Cl 89, BUN 30, Cr 1.7, Alb 4.0 Nutritional Hx/Data Height 5 ft 7 in Height (Calculated Centimeters) 170.2 Current Weight (lbs) 172 lb Weight (Calculated Kilograms) 78.0 Weight (Calculated Grams) 27324.9 Peculiar Body Weight 148 lb Body Mass Index (BMI) 26.9 Weight Status Overweight GI Symptoms GI Symptoms None Last BM none noted Difficult in: None Food Allergies No Skin Integrity/Comment: intact Current %PO Poor (25-49%) Estimated Nutritional Goals BEE in Kcals: Using Current wt Calories/Kcals/Kg 23-27 Kcals Calculated 6508-3175 Protein: Using Current wt Protein g/k.8 monitor renal labs Protein Calculated 62g Fluid: ml 1578-4284 (1 ml/kcal) Nutritional Problem 1. Problem Problem Altered nutrition related lab values Etiology hx of DM and possible renal dysfunction Signs/Symptoms: glucose 198, BUN 31, Cr 1.5, POC 173 Malnutrition Alert Is there a minimum of two criteria No selected? Query Text:Check all the applicable criteria. A minimum of two criteria are recommended for diagnosis of either severe or non-severe malnutrition. Malnutrition Related to Morbid Obesity Malnutrition related to morbid obesity No Intervention/Recommendation Comments 1. Recommend to start CCHO 60 g diet in addition to current renal diet order. MD to manage insulin regimen. 2. If PO intake continue <75%, consider supplementation w/ Glucerna 3. Monitor wt and nutrition related labs 4. F/U as moderate risk in 3-5 days, 05/18-05/20, PO check 05/17 Expected Outcomes/Goals Expected Outcomes/Goals 1. PO intake at least 75% of all meals 2. Wt stability; glucose and renal labs to approach normal limits Reviewed by Alise Owusu RD
--- NOTE | 2018-05-16 17:23 | Consultation ---
DATE OF CONSULTATION: 05/16/[address] Mattson. HISTORY OF PRESENT ILLNESS: This 73-year-old male patient who came to the hospital with obstructive uropathy. The patient had a Mendoza catheter with 500 mL. The patient does have slight hematuria. PAST MEDICAL HISTORY: BPH, diabetes mellitus type 2, hypertension, obesity, and slight hematuria. FAMILY HISTORY: Unremarkable. SOCIAL HISTORY: No history of smoking, alcohol abuse. ALLERGIES: None. PHYSICAL EXAMINATION: VITAL SIGNS: Blood pressure 130/80, pulse 70, and respirations 20. HEAD: Normocephalic. No lumps or bumps. EYES: Pupils equal, reactive to light. Fundi showing AV nicking, sclerae white, conjunctivae pink. NECK: Carotid 2+. Normal upstroke. JVD flat. Thyroid not palpable. Lymph nodes not palpable. CHEST: Shows increased AP diameter. No kyphosis, scoliosis. LUNGS: Bilateral bronchovesicular breath sounds. HEART: PMI fifth intercostal space with lateral to midclavicular line. S1, S2. No S3, S4, soft systolic murmur. ABDOMEN: Soft. Liver, spleen not palpable. No organomegaly. Bowel sounds active. NEUROLOGIC: Unremarkable. EXTREMITIES: Peripheral pulses 2+. No pedal edema. CLINICAL IMPRESSION: Benign prostatic hypertrophy, diabetes mellitus type 2, hypertension, obesity, and hematuria. PLAN: Admit the patient. The patient medically cleared for surgery. JOB# [id number]
--- NOTE | 2018-05-17 05:39 | Progress Notes ---
DATE: UROLOGY PROGRESS NOTE SUBJECTIVE: The patient was seen earlier today and after some time was moved to a [facility] to complete antibiotics and then returned next week for cystoscopy. Apparently was cleared by Cardiology before leaving the hospital. PHYSICAL EXAMINATION: VITAL SIGNS: Temperature 97.4, heart rate 91, and blood pressure 141/65. ABDOMEN: Soft. Flanks nontender. Bladder nondistended. Mendoza catheter draining well. EXTREMITIES: Trace edema. CARDIOVASCULAR: Heart sounds, sinus rhythm. LABORATORY DATA: Sugar 131, 127, and 168. IMPRESSION: 1. Urinary retention with a Mendoza, doing well. Needs a cystoscopy and will be scheduled next week. Meanwhile, the Plavix will be held. 2. Benign prostatic hypertrophy, awaiting cystoscopy. 3. Diabetes, good control. 4. Hypertension, stable. JOB# [id number]
--- NOTE | 2018-05-22 08:00 | Discharge Summary ---
DATE OF DISCHARGE: 05/16/2018 HISTORY AND HOSPITAL COURSE: This is a 73-year-old male patient. The patient came to the Emergency Room with symptoms of dysuria, urinary retention, history of BPH, history of diabetes 2, hypertension, obesity and hematuria. The patient was admitted and clinical impression benign enlargement of the prostate, diabetes, hypertension, obesity, hematuria. The patient was admitted and had ID doctor see the patient, Dr. Parvez Landis and he started him on antibiotics and bladder irrigation was done and the patient tolerated. The patient previously was getting Plavix and he had a pyelonephritis, which was treated by Dr. Landis and I spoke to the patient, I spoke to Dr. David who is urologist. He wants to do TURP next week, so the patient was sent to [facility] and I will be following the patient. The patient to continue IV antibiotic and bladder irrigation and will return the patient in about a week or so to schedule for surgery for TURP. [facility]# [id number]
== END 2018-05-16 14:15 | DRG 871 ==
LOC: ER 12:38 → MSI 14:45
PROVIDERS: ADMIT Internal Medicine; ATTEND Internal Medicine
DX: A41.9 Sepsis, unspecified organism (principal); J18.1 Lobar pneumonia, unspecified organism; N39.0 Urinary tract infection, site not specified; N40.1 Benign prostatic hyperplasia with lower urinary tract symptoms; I10 Essential (primary) hypertension; E11.9 Type 2 diabetes mellitus without complications; E86.0 Dehydration; D72.829 Elevated white blood cell count, unspecified; F17.210 Nicotine dependence, cigarettes, uncomplicated; R33.8 Other retention of urine; N32.0 Bladder-neck obstruction; E66.9 Obesity, unspecified; Z68.28 Body mass index [BMI] 28.0-28.9, adult; Z90.49 Acquired absence of other specified parts of digestive tract
CPT/HCPCS: 36415-UA; 71045-TC; 76857-TC; 80053-TC; 81001-TC; 82150-TC; 82948-90; 83036-90; 83605; 84443-TC; 84484-TC; 85007-TC; 85025-TC; 85610-TC; 85730-TC; 87086-90; 93005; J0696; J1644; J1815; J7030; J7040; X7704; Z7610

== ENCOUNTER 2018-05-24 12:24 | Inpatient (IN) | payer MEDICARE, OTHER ==
--- NOTE | 2018-05-24 13:06 | ED Physician Chart ---
ED Chief Complaint/HPI - Patient Information Date Seen:: 05/24/18 Time Seen:: 13:02 Chief Complaint:: preop turp History of Present Illness:: 73 yr old male here for pre-op turp was on plavix and now off pt not talking much came from the alf with a catheter Allergies:: Allergies Allergy/AdvReac Type Severity Reaction Status Date / Time No Known Allergies Allergy Verified 05/13/18 12:49 Vitals:: Vital Signs - 8 hr 05/24/18 12:38 Temp 98.8 F HR 77 RR 16 BP 143/77 O2 Sat % 95 ED Review of Systems - Review of Systems General/Constitutional: No fever, No chills, No weight loss, No weakness, No diaphoresis, No edema, No loss of appetite Skin: No skin lesions, No rash, No bruising Head: No headache, No light-headedness Eyes: No loss of vision, No pain, No diplopia ENT: No earache, No nasal drainage, No sore throat, No tinnitus Neck: No neck pain, No swelling, No thyromegaly, No stiffness, No mass noted Cardio Vascular: No chest pain, No palpitations, No PND, No orthopnea, No edema Pulmonary: No SOB, No cough, No sputum, No wheezing GI: No nausea, No vomiting, No diarrhea, No pain, No melena, No hematochezia, No constipation, No hematemesis G/U: No dysuria, No frequency, No hematuria, Other (urinary retension) Musculoskeletal: No bone or joint pain, No back pain, No muscle pain Endocrine: No polyuria, No polydipsia Psychiatric: No prior psych history, No depression, No anxiety, No suicidal ideation Hematopoietic: No bruising, No lymphadenopathy Allergic/Immuno: No urticaria, No angioedema Neurological: No syncope, No focal symptoms, No weakness, No paresthesia, No headache, No seizure, No dizziness, No confusion, No vertigo ED Past Medical History - Past Medical History Past Medical History: HTN, Dyslipidemia (BPH), PUD/GERD Family Medical History - Family Member Mother History Unknown: Yes ED Physical Exam - Physical Examination General/Constitutional: Awake, Well-developed, well-nourished, Alert, No distress, GCS 15, Non-toxic appearing, Ambulatory Head: Atraumatic Eyes: Lids, conjuctiva normal, PERRL, EOMI Skin: Nl inspection, No rash, No skin lesions, No ecchymosis, Well hydrated, No lymphadenopathy ENMT: External ears, nose nl, Nasal exam nl, Lips, teeth, gums nl Neck: Nontender, Full ROM w/o pain, No JVD, No nuchal rigidity, No bruit, No mass, No stridor Respiratory: Nl effort/Exclusion, Clear to Auscultation, No Wheeze/Rhonchi/Rales Cardio Vascular: RRR, No murmur, gallop, rubs, NL S1 S2 GI: No tenderness/rebounding/guarding, No organomegaly, No hernia, Normal BS's, Nondistended, No mass/bruits, No McBurney tenderness : No CVA tenderness Extremities: No tenderness or effusion, Full ROM, normal strength in all extremities, No edema, Normal digits & nails Neuro/Psych: Alert/oriented, DTR's symmetric, Normal sensory exam, Normal motor strength, Judgement/insight normal, Mood normal, Normal gait, No focal deficits Misc: Normal back, No paraspinal tenderness ED Assessment - Assessment General Assessment: BPH FOR TURP TOMORROW ED Septic Shock - . Is Septic Shock (SBP<90, OR Lactate>4 mmol\L) present?: No - <6hrs of presentation: Vital Signs: Vital Signs - 8 hr 05/24/18 12:38 Temp 98.8 F HR 77 RR 16 BP 143/77 O2 Sat % 95 ED Reassessment (Disposition) - Reassessment Reassessment Condition:: Unchanged - Diagnosis Diagnosis:: BPH - Patient Disposition Discharge/Transfer:: Acute Care w/in this hosp Admitted to:: Med/Surg Condition at Disposition:: Stable
[2018-05-24 13:15] LABS: URINE SOURCE CLEAN C
[2018-05-24 13:21] LABS: % BASOPHILS 0.2 % (0.0-2.0); % EOSINOPHILS 2.1 % (0.0-5.0); % LYMPHOCYTES 10.3 % (20.0-50.0); % NEUTROPHILS 81.4 % (40.0-80.0); EOSINOPHILE ABSOLUTE 0.3 Th/cmm (0.1-0.4); HEMATOCRIT 34.1 % (41.0-60); HEMOGLOBIN 11.5 gm/dL (12-16); LYMPHOCYTE ABSOLUTE 1.3 Th/cmm (1.5-3.0); MEAN CELL VOLUME 95.4 fl (80-99); MEAN CORPUSCULAR HEMOGLOBIN 32.3 pg (27.0-31.0); MEAN CORPUSCULAR HGB CONC 33.9 pg (28.0-36.0); MEAN PLATELET VOLUME 5.9 fl; MONOCYTE ABSOLUTE 0.7 Th/cmm (0.3-1.0); RED BLOOD COUNT 3.57 Mil/cmm (3.80-5.80); RED CELL DISTRIBUTION WIDTH 13.3 % (11.5-20.0); WHITE BLOOD COUNT 12.3 Th/cmm (4.8-10.8)
[2018-05-24 13:22] LABS: URINE BILIRUBIN NEGATIVE (NEGATIVE); URINE BLOOD LARGE (NEGATIVE); URINE GLUCOSE (UA) NEGATIVE (NEGATIVE); URINE KETONE NEGATIVE (NEGATIVE); URINE LEUKOCYTE ESTERASE TRACE (NEGATIVE); URINE MICROSCOPIC INDICATED? YES; URINE NITRATE NEGATIVE (NEGATIVE); URINE PROTEIN NEGATIVE (NEGATIVE)
[2018-05-24 13:28] LABS: PLATELET COUNT 819 Th/cmm (150-400)
[2018-05-24 13:30] LABS: URINE COLOR YELLOW
[2018-05-24 13:31] LABS: URINE CLARITY HAZY (CLEAR)
[2018-05-24 13:32] LABS: URINE BACTERIA OCCASIONAL /hpf (NONE SEEN); URINE EPITHELIAL CELLS FEW /lpf (FEW); URINE WBC 0-2 /hpf (0-5)
[2018-05-24 13:34] LABS: ALB/GLOB RATIO 0.9 (1.0-1.8); ALBUMIN 3.8 gm/dL (4.2-5.5); ALKALINE PHOSPHATASE 102 U/L (34-104); ANION GAP 13.7 (7.0-16.0); BILIRUBIN,TOTAL 0.7 mg/dL (0.3-1.0); BUN - UREA NITROGEN 17 mg/dL (7-25); CALCIUM SERUM 9.9 mg/dL (8.6-10.3); CARBON DIOXIDE 32.4 mEq/L (21.0-31.0); CHLORIDE 96 mEq/L (98-107); GLUCOSE 191 mg/dL (70-105); POTASSIUM SERUM 4.1 mEq/L (3.5-5.1); SGOT 38 U/L (13-39); SGPT/ALT 78 U/L (7-52); SODIUM SERUM 138 mEq/L (136-145); TOTAL PROTEIN,SERUM 7.9 gm/dL (6.0-8.3)
[2018-05-24 13:36] LABS: PROTHROMBIN TIME (TEST) 10.4 SECONDS (9.5-11.5)
--- NOTE | 2018-05-24 13:46 | Diagnostic Imaging Report ---
CHEST X-RAY: AP view INDICATION: Shortness of breath COMPARISON: 05/15/2017 FINDINGS: There is no focal consolidation or pleural effusions . Increased left lung retrocardiac markings are noted. Cardiomegaly is noted. Atherosclerosis is noted. Degenerative changes of spine are noted. IMPRESSION: Increased left lung retrocardiac mild markings which may be chronic , however, faint infiltrate cannot be excluded. Cardiomegaly and atherosclerotic vascular disease.
[2018-05-24] MEDS ORDERED: cefTRIAXone 1 GM in Sodium Chloride 0.9% 50 ML IV ONE (14:29)
[2018-05-24] MEDS ORDERED: Morphine Sulfate 2 mg/mL 1mL Syr IV PRN (14:57)
[2018-05-24 15:57] VITALS: BP 134/64
[2018-05-24] MEDS: D5-0.45NS 1,000 ML IV SCH (16:01)
[2018-05-24] MEDS: INSULIN ASPART SLIDING SCALE 100 UNITS/ML UNIT SUBQ SCH ×2 (17:46→20:39)
[2018-05-24] MEDS: Morphine Sulfate 2 mg/mL 1mL Syr IV PRN ×2 (17:48→22:11)
[2018-05-25] MEDS: Morphine Sulfate 2 mg/mL 1mL Syr IV PRN ×4 (02:19→20:36)
[2018-05-25 06:17] LABS: % BASOPHILS 0.2 % (0.0-2.0); % EOSINOPHILS 2.3 % (0.0-5.0); % MONOCYTES 6.2 % (2.0-10.0); % NEUTROPHILS 80.3 % (40.0-80.0); EOSINOPHILE ABSOLUTE 0.3 Th/cmm (0.1-0.4); HEMATOCRIT 31.9 % (41.0-60); HEMOGLOBIN 10.8 gm/dL (12-16); LYMPHOCYTE ABSOLUTE 1.3 Th/cmm (1.5-3.0); MEAN CELL VOLUME 97.3 fl (80-99); MEAN CORPUSCULAR HEMOGLOBIN 33.1 pg (27.0-31.0); MEAN PLATELET VOLUME 5.5 fl; MONOCYTE ABSOLUTE 0.7 Th/cmm (0.3-1.0); NEUTROPHILE ABSOLUTE 9.3 Th/cmm (1.8-8.0); RED BLOOD COUNT 3.28 Mil/cmm (3.80-5.80); RED CELL DISTRIBUTION WIDTH 12.6 % (11.5-20.0); WHITE BLOOD COUNT 11.6 Th/cmm (4.8-10.8)
[2018-05-25 06:24] LABS: INR 1.02 (0.5-1.4); PROTHROMBIN TIME (TEST) 10.6 SECONDS (9.5-11.5)
[2018-05-25 06:34] LABS: ALB/GLOB RATIO 0.9 (1.0-1.8); ALBUMIN 3.4 gm/dL (4.2-5.5); ALKALINE PHOSPHATASE 81 U/L (34-104); ANION GAP 12.8 (7.0-16.0); BILIRUBIN,TOTAL 0.5 mg/dL (0.3-1.0); BUN - UREA NITROGEN 15 mg/dL (7-25); CALCIUM SERUM 9.1 mg/dL (8.6-10.3); CARBON DIOXIDE 29.3 mEq/L (21.0-31.0); CHLORIDE 98 mEq/L (98-107); GLUCOSE 243 mg/dL (70-105); POTASSIUM SERUM 4.1 mEq/L (3.5-5.1); SGOT 22 U/L (13-39); SGPT/ALT 53 U/L (7-52); SODIUM SERUM 136 mEq/L (136-145)
[2018-05-25 06:40] LABS: PLATELET COUNT 769 Th/cmm (150-400)
[2018-05-25] MEDS: INSULIN ASPART SLIDING SCALE 100 UNITS/ML UNIT SUBQ SCH ×4 (06:40→21:01)
--- NOTE | 2018-05-25 09:09 | Consultation ---
DATE OF CONSULTATION: 05/24/[address] Mattson. HISTORY OF PRESENT ILLNESS: This 73-year-old male patient who was seen at [facility] one week ago with obstructive uropathy. The patient was on Plavix and hence, the patient was discharged to be readmitted for surgery. PAST MEDICAL HISTORY: BPH, diabetes mellitus type 2, hypertension, obesity, and hematuria. FAMILY HISTORY: Unremarkable. SOCIAL HISTORY: No history of smoking, alcohol abuse. ALLERGIES: None. PHYSICAL EXAMINATION: VITAL SIGNS: Blood pressure 127/72, pulse 78, and respirations 28. HEAD: Normocephalic. No lumps or bumps. EYES: Pupils equal, reactive to light. Fundi show AV nicking, sclerae white, conjunctivae pink. NECK: Carotid 2+. Normal upstroke. JVD flat. Thyroid not palpable. Lymph nodes not palpable. CHEST: Shows increased AP diameter. No kyphosis, scoliosis. LUNGS: Bilateral bronchovesicular breath sounds. HEART: PMI fifth intercostal space with lateral to midclavicular line. S1, S2. No S3, soft S4. Systolic murmur, grade 2/6, lower left sternal border without radiation. ABDOMEN: Soft. Liver, spleen not palpable. No organomegaly. Bowel sounds active. NEUROLOGIC: Unremarkable. EXTREMITIES: Peripheral pulses 2+. No pedal edema. CLINICAL IMPRESSION: Benign prostatic hypertrophy, diabetes mellitus type 2, hypertension, obesity, and hematuria, resolved. PLAN: At the present time, the patient's cardiac status is okay to have surgery. The patient is off Plavix for 1 week. JOB# [id number]
[2018-05-25] MEDS ORDERED: fentaNYL Citrate 100 mcg/2mL Vial ONE (12:06)
--- NOTE | 2018-05-25 12:07 | Internal Medicine Prog Note ---
Internal Medicine Subjective - Subjective Patient seen and examined:: chart reviewed Patient is:: awake, talking Per staff patient has:: no adverse event Internal Medicine Objective - Results Result Diagrams: 05/25/18 06:00 05/25/18 06:00 Recent Labs: Laboratory Last Values WBC 11.6 Th/cmm (4.8-10.8) H 05/25/18 06:00 RBC 3.28 Mil/cmm (3.80-5.80) L 05/25/18 06:00 Hgb 10.8 gm/dL (12-16) L 05/25/18 06:00 Hct 31.9 % (41.0-60) L 05/25/18 06:00 MCV 97.3 fl (80-99) 05/25/18 06:00 MCH 33.1 pg (27.0-31.0) H 05/25/18 06:00 MCHC Differential 34.0 pg (28.0-36.0) 05/25/18 06:00 RDW 12.6 % (11.5-20.0) 05/25/18 06:00 Plt Count 769 Th/cmm (150-400) H* 05/25/18 06:00 MPV 5.5 fl 05/25/18 06:00 Neutrophils % 80.3 % (40.0-80.0) H 05/25/18 06:00 Lymphocytes % 11.0 % (20.0-50.0) L 05/25/18 06:00 Monocytes % 6.2 % (2.0-10.0) 05/25/18 06:00 Eosinophils % 2.3 % (0.0-5.0) 05/25/18 06:00 Basophils % 0.2 % (0.0-2.0) 05/25/18 06:00 PT 10.6 SECONDS (9.5-11.5) 05/25/18 06:00 INR 1.02 (0.5-1.4) 05/25/18 06:00 PTT (Actin FS) 29.2 SECONDS (26.0-38.0) 05/25/18 06:00 Sodium 136 mEq/L (136-145) 05/25/18 06:00 Potassium 4.1 mEq/L (3.5-5.1) 05/25/18 06:00 Chloride 98 mEq/L (98-107) 05/25/18 06:00 Carbon Dioxide 29.3 mEq/L (21.0-31.0) 05/25/18 06:00 Anion Gap 12.8 (7.0-16.0) 05/25/18 06:00 BUN 15 mg/dL (7-25) 05/25/18 06:00 Creatinine 1.0 mg/dL (0.7-1.3) 05/25/18 06:00 Est GFR ( Amer) TNP 05/25/18 06:00 Est GFR (Non-Af Amer) TNP 05/25/18 06:00 BUN/Creatinine Ratio 15.0 05/25/18 06:00 Glucose 243 mg/dL (70-105) H 05/25/18 06:00 POC Glucose 213 MG/DL (70 - 105) H 05/25/18 05:32 Calcium 9.1 mg/dL (8.6-10.3) 05/25/18 06:00 Total Bilirubin 0.5 mg/dL (0.3-1.0) 05/25/18 06:00 AST 22 U/L (13-39) 05/25/18 06:00 ALT 53 U/L (7-52) H 05/25/18 06:00 Alkaline Phosphatase 81 U/L (34-104) 05/25/18 06:00 Total Protein 7.0 gm/dL (6.0-8.3) 05/25/18 06:00 Albumin 3.4 gm/dL (4.2-5.5) L 05/25/18 06:00 Globulin 3.6 gm/dL 05/25/18 06:00 Albumin/Globulin Ratio 0.9 (1.0-1.8) L 05/25/18 06:00 Urine Source CLEAN C 05/24/18 13:00 Urine Color YELLOW 05/24/18 13:00 Urine Clarity HAZY (CLEAR) 05/24/18 13:00 Urine pH 6.0 (4.6 - 8.0) 05/24/18 13:00 Ur Specific [place] 1.010 (1.005-1.030) 05/24/18 13:00 Urine Protein NEGATIVE mg/dL (NEGATIVE) 05/24/18 13:00 Urine Glucose (UA) NEGATIVE mg/dL (NEGATIVE) 05/24/18 13:00 Urine Ketones NEGATIVE mg/dL (NEGATIVE) 05/24/18 13:00 Urine Blood LARGE (NEGATIVE) H 05/24/18 13:00 Urine Nitrate NEGATIVE (NEGATIVE) 05/24/18 13:00 Urine Bilirubin NEGATIVE (NEGATIVE) 05/24/18 13:00 Urine Urobilinogen 1.0 E.U./dL (0.2 - 1.0) 05/24/18 13:00 Ur Leukocyte Esterase TRACE (NEGATIVE) H 05/24/18 13:00 Urine RBC 5-10 /hpf (0-5) H 05/24/18 13:00 Urine WBC 0-2 /hpf (0-5) 05/24/18 13:00 Ur Epithelial Cells FEW /lpf (FEW) 05/24/18 13:00 Urine Bacteria OCCASIONAL /hpf (NONE SEEN) 05/24/18 13:00 - Physical Exam Vitals and I&O: Vital Signs Temp 98.2 F 05/25/18 11:39 Pulse 78 05/25/18 11:39 Resp 18 05/25/18 11:39 BP 159/69 05/25/18 11:39 Pulse Ox 91 05/25/18 11:39 Intake & Output 05/24/18 05/25/18 05/25/18 18:59 06:59 18:59 Intake Total 240 Output Total 350 900 Balance -350 -660 Weight (lbs) 74.843 kg 75.523 kg Intake: Oral 240 Output: Urine 350 900 Other: # Bowel Movements 0 Weight Source Bedscale Bedscale Active Medications: Current Medications Ceftriaxone Sodium 1 gm/ (Sodium Chloride) 50 mls @ 100 mls/hr IV Q24HR [facility] Stop: 07/24/18 14:59 Dextrose/Sodium Chloride (D5-0.45ns) 1,000 mls @ 50 mls/hr IV .Q20H [facility] Stop: 07/23/18 14:59 Last Admin: 05/24/18 16:01 Dose: 50 mls/hr Insulin Aspart (Novolog Insulin Sliding Scale) 0 units SUBQ ACHS ANITA; Protocol Stop: 07/23/18 16:29 Last Admin: 05/25/18 06:40 Dose: Not Given Morphine Sulfate (Morphine) 1 mg IV Q4H PRN PRN Reason: Pain (Mild) Stop: 07/23/18 14:59 Morphine Sulfate (Morphine) 2 mg IV Q4H PRN PRN Reason: Pain (Moderate) Stop: 07/23/18 14:59 Last Admin: 05/25/18 06:52 Dose: 2 mg Ondansetron HCl (Zofran) 4 mg IV Q6H PRN PRN Reason: Nausea / Vomiting Stop: 07/23/18 14:59 Zolpidem Tartrate (Ambien) 5 mg PO HS PRN PRN Reason: Insomnia Stop: 07/23/18 22:03 Last Admin: 05/24/18 22:51 Dose: 5 mg General: alert, NAD HEENT: NC/AT Neck: Supple Lungs: CTAB Cardiovascular: Normal S1, Normal S2 Abdomen: soft, non-tender Extremities: clear Neurological: no change Internal Medicine Assmt/Plan - Assessment Assessment: BPH dm type 2 htn obesity h/o hematuria - Plan Plan: as per surgeon
[2018-05-25] MEDS ORDERED: Neostigmine 10mg/10mL Vial ONE (12:11)
[2018-05-25] MEDS ORDERED: Propofol **SURGERY USE ONLY** 20 ML IV ONE (12:11)
[2018-05-25] MEDS ORDERED: APAP/Codeine 300 mg/30 mg Tab ONE (14:47)
[2018-05-25] MEDS ORDERED: APAP/Codeine 300 mg/30 mg Tab PO ONE (14:51)
[2018-05-25] MEDS ORDERED: cefTRIAXone 1 GM in Sodium Chloride 0.9% 50 ML IV SCH (15:00)
[2018-05-25] MEDS: Tolterodine Tartrate 2 mg ER Cap PO SCH (16:36)
[2018-05-25] MEDS: D5-0.45NS 1,000 ML IV SCH (16:46)
[2018-05-26] MEDS: Morphine Sulfate 2 mg/mL 1mL Syr IV PRN (01:48)
[2018-05-26 05:18] LABS: ALBUMIN 3.2 gm/dL (4.2-5.5); ALKALINE PHOSPHATASE 65 U/L (34-104); ANION GAP 11.5 (7.0-16.0); BILIRUBIN,TOTAL 0.4 mg/dL (0.3-1.0); BUN - UREA NITROGEN 14 mg/dL (7-25); CALCIUM SERUM 8.7 mg/dL (8.6-10.3); CARBON DIOXIDE 30.9 mEq/L (21.0-31.0); CHLORIDE 97 mEq/L (98-107); CREATININE - SERUM 1.1 mg/dL (0.7-1.3); GLUCOSE 285 mg/dL (70-105); POTASSIUM SERUM 4.4 mEq/L (3.5-5.1); SGOT 16 U/L (13-39); SGPT/ALT 36 U/L (7-52); SODIUM SERUM 135 mEq/L (136-145); TOTAL PROTEIN,SERUM 6.5 gm/dL (6.0-8.3)
[2018-05-26] MEDS: INSULIN ASPART SLIDING SCALE 100 UNITS/ML UNIT SUBQ SCH ×3 (06:45→17:59)
[2018-05-26] MEDS ORDERED: Probiotic Screen MC PRN (09:33)
--- NOTE | 2018-05-26 10:21 | History & Physical ---
ADMIT DATE: 05/24/2018 HISTORY OF PRESENT ILLNESS: The patient is a 73-year-old male patient with a history of hypertension, history of recently diagnosed benign enlargement of prostate, came in ____ symptoms, also had hematuria, was seen by the urologist who felt that the patient should have a TURP. The patient also has a history of cardiovascular problem, and he is on Plavix, he was sent back ____ treatment for a week and now he is off his Plavix for 1 week and the patient also has been brought back for a definite procedure of TURP. The patient is still complaining of lower abdominal pain, dysuria, and he has a Mendoza catheter. His medications are reviewed. PHYSICAL EXAMINATION: VITAL SIGNS: Stable. HEAD: Normal. ENT: Normal. NECK: Supple, nontender. LUNGS: Clear. CARDIOVASCULAR SYSTEM: S1, S2 heard. ABDOMEN: Soft. Bowel sounds are heard. CENTRAL NERVOUS SYSTEM: Grossly normal. DIAGNOSES: Benign prostatic hyperplasia, ____. PLAN: We will continue his IV antibiotics, and he was started on IV fluids D5 and a half, and the patient has been ____ last night, and I am clearing the patient for surgery per Dr. Byrne ____. JOB# [id number]
[2018-05-26] MEDS ORDERED: Lactobacillus Rhamnosus GG 15 Billion CFU CAP.SPRINK PO SCH (12:00)
--- NOTE | 2018-05-26 12:31 | Internal Medicine Prog Note ---
Internal Medicine Subjective - Subjective Service Date: 05/26/18 Patient is:: awake, talking Per staff patient has:: no adverse event Internal Medicine Objective - Results Result Diagrams: 05/25/18 06:00 05/26/18 04:22 Recent Labs: Laboratory Last Values WBC 11.6 Th/cmm (4.8-10.8) H 05/25/18 06:00 RBC 3.28 Mil/cmm (3.80-5.80) L 05/25/18 06:00 Hgb 10.8 gm/dL (12-16) L 05/25/18 06:00 Hct 31.9 % (41.0-60) L 05/25/18 06:00 MCV 97.3 fl (80-99) 05/25/18 06:00 MCH 33.1 pg (27.0-31.0) H 05/25/18 06:00 MCHC Differential 34.0 pg (28.0-36.0) 05/25/18 06:00 RDW 12.6 % (11.5-20.0) 05/25/18 06:00 Plt Count 769 Th/cmm (150-400) H* 05/25/18 06:00 MPV 5.5 fl 05/25/18 06:00 Neutrophils % 80.3 % (40.0-80.0) H 05/25/18 06:00 Lymphocytes % 11.0 % (20.0-50.0) L 05/25/18 06:00 Monocytes % 6.2 % (2.0-10.0) 05/25/18 06:00 Eosinophils % 2.3 % (0.0-5.0) 05/25/18 06:00 Basophils % 0.2 % (0.0-2.0) 05/25/18 06:00 PT 10.6 SECONDS (9.5-11.5) 05/25/18 06:00 INR 1.02 (0.5-1.4) 05/25/18 06:00 PTT (Actin FS) 29.2 SECONDS (26.0-38.0) 05/25/18 06:00 Sodium 135 mEq/L (136-145) L 05/26/18 04:22 Potassium 4.4 mEq/L (3.5-5.1) 05/26/18 04:22 Chloride 97 mEq/L (98-107) L 05/26/18 04:22 Carbon Dioxide 30.9 mEq/L (21.0-31.0) 05/26/18 04:22 Anion Gap 11.5 (7.0-16.0) 05/26/18 04:22 BUN 14 mg/dL (7-25) 05/26/18 04:22 Creatinine 1.1 mg/dL (0.7-1.3) 05/26/18 04:22 Est GFR ( Amer) TNP 05/26/18 04:22 Est GFR (Non-Af Amer) TNP 05/26/18 04:22 BUN/Creatinine Ratio 12.7 05/26/18 04:22 Glucose 285 mg/dL (70-105) H 05/26/18 04:22 POC Glucose 302 MG/DL (70 - 105) H 05/26/18 06:41 Calcium 8.7 mg/dL (8.6-10.3) 05/26/18 04:22 Total Bilirubin 0.4 mg/dL (0.3-1.0) 05/26/18 04:22 AST 16 U/L (13-39) 05/26/18 04:22 ALT 36 U/L (7-52) 05/26/18 04:22 Alkaline Phosphatase 65 U/L (34-104) 05/26/18 04:22 Total Protein 6.5 gm/dL (6.0-8.3) 05/26/18 04:22 Albumin 3.2 gm/dL (4.2-5.5) L 05/26/18 04:22 Globulin 3.3 gm/dL 05/26/18 04:22 Albumin/Globulin Ratio 1.0 (1.0-1.8) 05/26/18 04:22 Urine Source CLEAN C 05/24/18 13:00 Urine Color YELLOW 05/24/18 13:00 Urine Clarity HAZY (CLEAR) 05/24/18 13:00 Urine pH 6.0 (4.6 - 8.0) 05/24/18 13:00 Ur Specific [place] 1.010 (1.005-1.030) 05/24/18 13:00 Urine Protein NEGATIVE mg/dL (NEGATIVE) 05/24/18 13:00 Urine Glucose (UA) NEGATIVE mg/dL (NEGATIVE) 05/24/18 13:00 Urine Ketones NEGATIVE mg/dL (NEGATIVE) 05/24/18 13:00 Urine Blood LARGE (NEGATIVE) H 05/24/18 13:00 Urine Nitrate NEGATIVE (NEGATIVE) 05/24/18 13:00 Urine Bilirubin NEGATIVE (NEGATIVE) 05/24/18 13:00 Urine Urobilinogen 1.0 E.U./dL (0.2 - 1.0) 05/24/18 13:00 Ur Leukocyte Esterase TRACE (NEGATIVE) H 05/24/18 13:00 Urine RBC 5-10 /hpf (0-5) H 05/24/18 13:00 Urine WBC 0-2 /hpf (0-5) 05/24/18 13:00 Ur Epithelial Cells FEW /lpf (FEW) 05/24/18 13:00 Urine Bacteria OCCASIONAL /hpf (NONE SEEN) 05/24/18 13:00 - Physical Exam Vitals and I&O: Vital Signs Temp 98.8 F 05/26/18 04:00 Pulse 93 05/26/18 06:00 Resp 15 05/26/18 06:00 BP 133/70 05/26/18 06:00 Pulse Ox 95 05/26/18 06:00 Intake & Output 05/25/18 05/26/18 05/26/18 18:59 06:59 18:59 Intake Total 4200 1520 Output Total 3200 3050 Balance 1000 -1530 Weight (lbs) 166 lb 170 lb Intake: Intake, IV Amount 1050 D5-0.45NS 1,000 ml @ 50 1000 mls/hr IV .Q20H [facility] Rx#: [id number] cefTRIAXone 1 gm In 50 Sodium Chloride 0.9% 50 ml @ 100 mls/hr IV Q24HR [facility] Rx#:[id number] Oral 150 720 Other 3000 800 Output: Urine 3200 3050 Other: Weight Source Bedscale Bedscale Active Medications: Current Medications Ceftriaxone Sodium 1 gm/ (Sodium Chloride) 50 mls @ 100 mls/hr IV Q24HR [facility] Stop: 07/24/18 14:59 Last Infusion: 05/25/18 17:10 Dose: Infused Dextrose/Sodium Chloride (D5-0.45ns) 1,000 mls @ 50 mls/hr IV .Q20H [facility] Stop: 07/23/18 14:59 Last Admin: 10/18/18 16:46 Dose: 50 mls/hr Insulin Aspart (Novolog Insulin Sliding Scale) 0 units SUBQ ACHS AN[facility]; Protocol Stop: 07/23/18 16:29 Last Admin: 05/26/18 06:45 Dose: 8 units Lactobacillus Rhamnosus (Culturelle 15b) 1 each PO DAILY [facility] Stop: 07/25/18 11:59 Miscellaneous (Probiotic Screen) 1 ea MC PRN PRN PRN Reason: PROTOCOL Stop: 07/25/18 09:32 Morphine Sulfate (Morphine) 1 mg IV Q4H PRN PRN Reason: Pain (Mild) Stop: 07/23/18 14:59 Morphine Sulfate (Morphine) 2 mg IV Q4H PRN PRN Reason: Pain (Moderate) Stop: 07/23/18 14:59 Last Admin: 05/26/18 01:48 Dose: 2 mg Ondansetron HCl (Zofran) 4 mg IV Q6H PRN PRN Reason: Nausea / Vomiting Stop: 07/23/18 14:59 Tolterodine Tartrate (Detrol La) 2 mg PO DAILY [facility] Stop: 07/24/18 14:29 Last Admin: 05/25/18 16:36 Dose: 2 mg Zolpidem Tartrate (Ambien) 5 mg PO HS PRN PRN Reason: Insomnia Stop: 07/23/18 22:03 Last Admin: 05/25/18 22:51 Dose: 5 mg General: alert, NAD HEENT: NC/AT Neck: Supple Lungs: CTAB Cardiovascular: Normal S1, Normal S2 Abdomen: soft, non-tender Extremities: clear Neurological: no change Internal Medicine Assmt/Plan - Assessment Assessment: BPH dm type 2 htn obesity h/o hematuria - Plan Plan: dc planning to SNF as per family continue current plan of care Nutritional Asmnt/Malnutr-PDOC - Dietary Evaluation Malnutrition Findings (Please click <Entered> for more info): Nutritional Asmnt/Malnutrition Start: 05/25/18 15: 31 Text: Status: Complete Freq: Protocol: Document 05/25/18 15:31 UNA (Rec: 05/25/18 15:50 UNA [email or web address]) Nutritional Asmnt/Malnutrition Patient General Information Nutritional Screening High Risk Diagnosis BPH Pertinent Medical Hx/Surgical Hx HTN, dyslipidemia, PUD/GERD, BPH, DM, obesity, hematuria Subjective Information High risk d/t glucose 191 upon admission. Pt not present in room at time of visit. Per nurse note 05/25: pt scheduled for TURP today. Nursing noted PO intake: 15% of dinner last night. Pt was NPO this morning. Full liquid diet will start at dinner tonight. Current Diet Order/ Nutrition Support Full Liquid Pertinent Medications D5-0.45ns, novolog, zofran Pertinent Labs 05/25: glucose 243, POC 213, Cl WNL, Alb 3.4 05/24: glucose 191, POC 161- 271, Cl 96, Alb 3.8 Nutritional Hx/Data Height 5 ft 7 in Height (Calculated Centimeters) 170.2 Current Weight (lbs) 166 lb 8 oz Weight (Calculated Kilograms) 75.5 Weight (Calculated Grams) 69845.1 [place] Body Weight 148 lb Body Mass Index (BMI) 26.0 Weight Status Overweight GI Symptoms GI Symptoms None Last BM none noted Difficult in: None Food Allergies No Skin Integrity/Comment: catheter, intact, korina 17 Estimated Nutritional Goals BEE in Kcals: Using Current wt Calories/Kcals/Kg 23-27 Kcals Calculated 7782-7490 Protein: Using Current wt Protein g/k.0 Protein Calculated 76 g Fluid: ml 4746-1456 (1 ml/kcal) Nutritional Problem 1. Problem Problem Altered nutrition related lab values Etiology hx of DM Signs/Symptoms: glucose 243, POC 213 Malnutrition Alert Is there a minimum of two criteria No selected? Query Text:Check all the applicable criteria. A minimum of two criteria are recommended for diagnosis of either severe or non-severe malnutrition. Malnutrition Related to Morbid Obesity Malnutrition related to morbid obesity No Intervention/Recommendation Comments 1. If PO intake is tolerated and medically appropriate, recommend to advance to [facility] 60g diet d/t hx of DM. MD to manage insulin regimen for optimal glycemic control 2. Monitor PO intake, wt, labs and skin integrity 3. F/U as moderate risk in 3-5 days, 05/28-05/30 Expected Outcomes/Goals Expected Outcomes/Goals 1. PO intake to meet at least 75% of nutritional needs 2. Wt stability, skin to remain intact, and nutrition related labs to approach normal limits Reviewed by Alise Owusu RD
--- NOTE | 2018-05-26 12:50 | Infectious Disease Prog Note ---
Infectious Disease Subjective - Review of Systems Service Date: 05/26/18 Infectious Disease Objective - Results Result Diagrams: 05/25/18 06:00 05/26/18 04:22 Recent Labs: Laboratory Last Values WBC 11.6 Th/cmm (4.8-10.8) H 05/25/18 06:00 RBC 3.28 Mil/cmm (3.80-5.80) L 05/25/18 06:00 Hgb 10.8 gm/dL (12-16) L 05/25/18 06:00 Hct 31.9 % (41.0-60) L 05/25/18 06:00 MCV 97.3 fl (80-99) 05/25/18 06:00 MCH 33.1 pg (27.0-31.0) H 05/25/18 06:00 MCHC Differential 34.0 pg (28.0-36.0) 05/25/18 06:00 RDW 12.6 % (11.5-20.0) 05/25/18 06:00 Plt Count 769 Th/cmm (150-400) H* 05/25/18 06:00 MPV 5.5 fl 05/25/18 06:00 Neutrophils % 80.3 % (40.0-80.0) H 05/25/18 06:00 Lymphocytes % 11.0 % (20.0-50.0) L 05/25/18 06:00 Monocytes % 6.2 % (2.0-10.0) 05/25/18 06:00 Eosinophils % 2.3 % (0.0-5.0) 05/25/18 06:00 Basophils % 0.2 % (0.0-2.0) 05/25/18 06:00 PT 10.6 SECONDS (9.5-11.5) 05/25/18 06:00 INR 1.02 (0.5-1.4) 05/25/18 06:00 PTT (Actin FS) 29.2 SECONDS (26.0-38.0) 05/25/18 06:00 Sodium 135 mEq/L (136-145) L 05/26/18 04:22 Potassium 4.4 mEq/L (3.5-5.1) 05/26/18 04:22 Chloride 97 mEq/L (98-107) L 05/26/18 04:22 Carbon Dioxide 30.9 mEq/L (21.0-31.0) 05/26/18 04:22 Anion Gap 11.5 (7.0-16.0) 05/26/18 04:22 BUN 14 mg/dL (7-25) 05/26/18 04:22 Creatinine 1.1 mg/dL (0.7-1.3) 05/26/18 04:22 Est GFR ( Amer) TNP 05/26/18 04:22 Est GFR (Non-Af Amer) TNP 05/26/18 04:22 BUN/Creatinine Ratio 12.7 05/26/18 04:22 Glucose 285 mg/dL (70-105) H 05/26/18 04:22 POC Glucose 302 MG/DL (70 - 105) H 05/26/18 06:41 Calcium 8.7 mg/dL (8.6-10.3) 05/26/18 04:22 Total Bilirubin 0.4 mg/dL (0.3-1.0) 05/26/18 04:22 AST 16 U/L (13-39) 05/26/18 04:22 ALT 36 U/L (7-52) 05/26/18 04:22 Alkaline Phosphatase 65 U/L (34-104) 05/26/18 04:22 Total Protein 6.5 gm/dL (6.0-8.3) 05/26/18 04:22 Albumin 3.2 gm/dL (4.2-5.5) L 05/26/18 04:22 Globulin 3.3 gm/dL 05/26/18 04:22 Albumin/Globulin Ratio 1.0 (1.0-1.8) 05/26/18 04:22 Urine Source CLEAN C 05/24/18 13:00 Urine Color YELLOW 05/24/18 13:00 Urine Clarity HAZY (CLEAR) 05/24/18 13:00 Urine pH 6.0 (4.6 - 8.0) 05/24/18 13:00 Ur Specific [place] 1.010 (1.005-1.030) 05/24/18 13:00 Urine Protein NEGATIVE mg/dL (NEGATIVE) 05/24/18 13:00 Urine Glucose (UA) NEGATIVE mg/dL (NEGATIVE) 05/24/18 13:00 Urine Ketones NEGATIVE mg/dL (NEGATIVE) 05/24/18 13:00 Urine Blood LARGE (NEGATIVE) H 05/24/18 13:00 Urine Nitrate NEGATIVE (NEGATIVE) 05/24/18 13:00 Urine Bilirubin NEGATIVE (NEGATIVE) 05/24/18 13:00 Urine Urobilinogen 1.0 E.U./dL (0.2 - 1.0) 05/24/18 13:00 Ur Leukocyte Esterase TRACE (NEGATIVE) H 05/24/18 13:00 Urine RBC 5-10 /hpf (0-5) H 05/24/18 13:00 Urine WBC 0-2 /hpf (0-5) 05/24/18 13:00 Ur Epithelial Cells FEW /lpf (FEW) 05/24/18 13:00 Urine Bacteria OCCASIONAL /hpf (NONE SEEN) 05/24/18 13:00 - Physical Exam Vitals and I&O: Vital Signs Temp 98.8 F 05/26/18 04:00 Pulse 93 05/26/18 06:00 Resp 15 05/26/18 06:00 BP 133/70 05/26/18 06:00 Pulse Ox 95 05/26/18 06:00 Intake & Output 05/25/18 05/26/18 05/26/18 18:59 06:59 18:59 Intake Total 4200 1520 Output Total 3200 3050 Balance 1000 -1530 Weight (lbs) 75.296 kg 77.111 kg Intake: Intake, IV Amount 1050 D5-0.45NS 1,000 ml @ 50 1000 mls/hr IV .Q20H [facility] Rx#: [id number] cefTRIAXone 1 gm In 50 Sodium Chloride 0.9% 50 ml @ 100 mls/hr IV Q24HR [facility] Rx#:[id number] Oral 150 720 Other 3000 800 Output: Urine 3200 3050 Other: Weight Source Bedscale Bedscale Active Medications: Current Medications Ceftriaxone Sodium 1 gm/ (Sodium Chloride) 50 mls @ 100 mls/hr IV Q24HR [facility] Stop: 07/24/18 14:59 Last Infusion: 05/25/18 17:10 Dose: Infused Dextrose/Sodium Chloride (D5-0.45ns) 1,000 mls @ 50 mls/hr IV .Q20H [facility] Stop: 07/23/18 14:59 Last Admin: 05/25/18 16:46 Dose: 50 mls/hr Insulin Aspart (Novolog Insulin Sliding Scale) 0 units SUBQ ACHS ANITA; Protocol Stop: 07/23/18 16:29 Last Admin: 05/26/18 12:48 Dose: 10 units Lactobacillus Rhamnosus (Culturelle 15b) 1 each PO DAILY [facility] Stop: 07/25/18 11:59 Miscellaneous (Probiotic Screen) 1 ea MC PRN PRN PRN Reason: PROTOCOL Stop: 07/25/18 09:32 Morphine Sulfate (Morphine) 1 mg IV Q4H PRN PRN Reason: Pain (Mild) Stop: 07/23/18 14:59 Morphine Sulfate (Morphine) 2 mg IV Q4H PRN PRN Reason: Pain (Moderate) Stop: 07/23/18 14:59 Last Admin: 05/26/18 01:48 Dose: 2 mg Ondansetron HCl (Zofran) 4 mg IV Q6H PRN PRN Reason: Nausea / Vomiting Stop: 07/23/18 14:59 Tolterodine Tartrate (Detrol La) 2 mg PO DAILY [facility] Stop: 07/24/18 14:29 Last Admin: 05/25/18 16:36 Dose: 2 mg Zolpidem Tartrate (Ambien) 5 mg PO HS PRN PRN Reason: Insomnia Stop: 07/23/18 22:03 Last Admin: 05/25/18 22:51 Dose: 5 mg Nutritional Asmnt/Malnutr-PDOC - Dietary Evaluation Malnutrition Findings (Please click <Entered> for more info): Nutritional Asmnt/Malnutrition Start: 05/25/18 15: 31 Text: Status: Complete Freq: Protocol: Document 05/25/18 15:31 UNA (Rec: 05/25/18 15:50 UNA [email or web address]) Nutritional Asmnt/Malnutrition Patient General Information Nutritional Screening High Risk Diagnosis BPH Pertinent Medical Hx/Surgical Hx HTN, dyslipidemia, PUD/GERD, BPH, DM, obesity, hematuria Subjective Information High risk d/t glucose 191 upon admission. Pt not present in room at time of visit. Per nurse note 05/25: pt scheduled for TURP today. Nursing noted PO intake: 15% of dinner last night. Pt was NPO this morning. Full liquid diet will start at dinner tonight. Current Diet Order/ Nutrition Support Full Liquid Pertinent Medications D5-0.45ns, novolog, zofran Pertinent Labs 05/25: glucose 243, POC 213, Cl WNL, Alb 3.4 05/24: glucose 191, POC 161- 271, Cl 96, Alb 3.8 Nutritional Hx/Data Height 1.7 m Height (Calculated Centimeters) 170.2 Current Weight (lbs) 75.523 kg Weight (Calculated Kilograms) 75.5 Weight (Calculated Grams) 19212.1 [place] Body Weight 148 lb Body Mass Index (BMI) 26.0 Weight Status Overweight GI Symptoms GI Symptoms None Last BM none noted Difficult in: None Food Allergies No Skin Integrity/Comment: catheter, intact, korina 17 Estimated Nutritional Goals BEE in Kcals: Using Current wt Calories/Kcals/Kg 23-27 Kcals Calculated 4892-7578 Protein: Using Current wt Protein g/k.0 Protein Calculated 76 g Fluid: ml 2591-1828 (1 ml/kcal) Nutritional Problem 1. Problem Problem Altered nutrition related lab values Etiology hx of DM Signs/Symptoms: glucose 243, POC 213 Malnutrition Alert Is there a minimum of two criteria No selected? Query Text:Check all the applicable criteria. A minimum of two criteria are recommended for diagnosis of either severe or non-severe malnutrition. Malnutrition Related to Morbid Obesity Malnutrition related to morbid obesity No Intervention/Recommendation Comments 1. If PO intake is tolerated and medically appropriate, recommend to advance to [facility] [place] 60g diet d/t hx of DM. MD to manage insulin regimen for optimal glycemic control 2. Monitor PO intake, wt, labs and skin integrity 3. F/U as moderate risk in 3-5 days, 05/28-05/30 Expected Outcomes/Goals Expected Outcomes/Goals 1. PO intake to meet at least 75% of nutritional needs 2. Wt stability, skin to remain intact, and nutrition related labs to approach normal limits Reviewed by Alise Owusu RD
[2018-05-26] MEDS: Tolterodine Tartrate 2 mg ER Cap PO SCH (12:52)
--- NOTE | 2018-05-26 12:52 | Consultation ---
Consult Note - Consult Note Service Date: 05/26/18 Referring Physician: Bárbara Mattson Consult Note: PHYSICIAN Consultation Note: Date of Admission: 05/24/18 Purpose of Consultation: Chief Complaint: Patient LYNN BARROW was admitted to location Intensive Care Unit with BPH. History of Present Illness: 73-year-old male admitted to the ICU for hematuria. He was recently admitted for hematuria, he required urological procedure so he was discharged on rocephin and brought back to the hospital for same treatment plan. TURP was performed. ID consult was called for antibiotic management. Past Medical History: DM2, HTN, BPH. Diagnoses TYPE 2 DIABETES MELLITUS WITHOUT COMPLICATIONS (05/24/18) OBESITY, UNSPECIFIED (05/24/18) ESSENTIAL (PRIMARY) HYPERTENSION (05/24/18) BENIGN PROSTATIC HYPERPLASIA WITHOUT LOWER URINRY TRACT SYMP (05/24/18) HEMATURIA, UNSPECIFIED (05/24/18) WEAKNESS (05/24/18) Allergies Allergy/AdvReac Type Severity Reaction Status Date / Time No Known Allergies Allergy Verified 05/13/18 12:49 Vital Signs Temp 98.8 F 05/26/18 04:00 Pulse 93 05/26/18 06:00 Resp 15 05/26/18 06:00 BP 133/70 05/26/18 06:00 Pulse Ox 95 05/26/18 06:00 Intake & Output 05/25/18 05/26/18 05/26/18 18:59 06:59 18:59 Intake Total 4200 1520 Output Total 3200 3050 Balance 1000 -1530 Weight (lbs) 75.296 kg 77.111 kg Intake: Intake, IV Amount 1050 D5-0.45NS 1,000 ml @ 50 1000 mls/hr IV .Q20H ANITA Rx#: [id number] cefTRIAXone 1 gm In 50 Sodium Chloride 0.9% 50 ml @ 100 mls/hr IV Q24HR ANITA Rx#:[id number] Oral 150 720 Other 3000 800 Output: Urine 3200 3050 Other: Weight Source Bedscale Bedscale Laboratory Results - last 24 hr 05/25/18 05/25/18 05/26/18 15:28 20:57 04:22 Sodium 135 L Potassium 4.4 Chloride 97 L Carbon Dioxide 30.9 Anion Gap 11.5 BUN 14 Creatinine 1.1 Est GFR ( Amer) TNP Est GFR (Non-Af Amer) TNP BUN/Creatinine Ratio 12.7 Glucose 285 H POC Glucose 275 H 298 H Calcium 8.7 Total Bilirubin 0.4 AST 16 ALT 36 Alkaline Phosphatase 65 Total Protein 6.5 Albumin 3.2 L Globulin 3.3 Albumin/Globulin Ratio 1.0 05/26/18 06:41 Sodium Potassium Chloride Carbon Dioxide Anion Gap BUN Creatinine Est GFR ( Amer) Est GFR (Non-Af Amer) BUN/Creatinine Ratio Glucose POC Glucose 302 H Calcium Total Bilirubin AST ALT Alkaline Phosphatase Total Protein Albumin Globulin Albumin/Globulin Ratio Home Medication Medication Instructions Recorded Type Acetaminophen [Pain Relief] 1,000 mg PO Q6H PRN 05/24/18 History Cranberry Fruit Concentrate 450 mg PO DAILY 05/24/18 History [Cranberry] Docusate Sodium [Colace] 100 mg PO DAILY 05/24/18 History Famotidine 20 mg PO DAILY 05/24/18 History Hydrochlorothiazide 25 mg PO DAILY 05/24/18 History Insulin Aspart Sliding Scale 0 units SUBQ ACHS 05/24/18 History [NovoLOG INSULIN SLIDING SCALE] Insulin NPH Human Isophane 40 unit SQ BID 05/24/18 History [Humulin N] Lactobacillus Acidophilus 1 each PO DAILY 05/24/18 History [Acidophilus] Lisinopril 20 mg PO DAILY 05/24/18 History Multivitamin-Min/Iron/FA/Vit K 1 tab PO DAILY 05/24/18 History [Multi-Day Plus Minerals Tablet] Potassium Chloride [Klor-Con 10] 1 tab PO DAILY 05/24/18 History Rosuvastatin Calcium [Crestor] 20 mg PO HS 05/24/18 History Tuberculin,Purif.prot.deriv. 0.1 ml TD ONCE 05/24/18 History [Aplisol] Verapamil HCl 80 mg PO DAILY 05/24/18 History Verapamil HCl [Verapamil HCl*] 20 mg PO HS 05/24/18 History Current Medications Generic Name Dose Route Start Last Admin Trade Name Freq PRN Reason Stop Dose Admin Ceftriaxone Sodium 1 gm/ 50 mls @ 100 mls/hr 05/25/18 15:00 05/25/18 17:10 Sodium Chloride IV 07/24/18 14:59 Infused Q24HR ANITA Infusion Dextrose/Sodium Chloride 1,000 mls @ 50 mls/hr 05/24/18 15:00 05/25/18 16:46 D5-0.45ns IV 07/23/18 14:59 50 mls/hr .Q20H ANITA Administration Insulin Aspart 0 units 05/24/18 16:30 05/26/18 12:48 Novolog Insulin Sliding Scale SUBQ 07/23/18 16:29 10 units ACHS ANITA Administration Protocol Lactobacillus Rhamnosus 1 each 05/26/18 12:00 Culturelle 15b PO 07/25/18 11:59 DAILY ANITA Miscellaneous 1 ea 05/26/18 09:33 Probiotic Screen MC 07/25/18 09:32 PRN PRN PROTOCOL Morphine Sulfate 1 mg 05/24/18 14:57 Morphine IV 07/23/18 14:59 Q4H PRN Pain (Mild) Morphine Sulfate 2 mg 05/24/18 14:59 05/26/18 01:48 Morphine IV 07/23/18 14:59 2 mg Q4H PRN Administration Pain (Moderate) Ondansetron HCl 4 mg 05/24/18 15:00 Zofran IV 07/23/18 14:59 Q6H PRN Nausea / Vomiting Tolterodine Tartrate 2 mg 05/25/18 14:30 05/25/18 16:36 Detrol La PO 07/24/18 14:29 2 mg DAILY ANITA Administration Zolpidem Tartrate 5 mg 05/24/18 22:04 05/25/18 22:51 Ambien PO 07/23/18 22:03 5 mg HS PRN Administration Insomnia Review of Systems: A 12 point ROS was reviewed with the pertinent positive and negatives noted in the HPI. Social History Smoking Status Former smoker Drug Use No Alcohol Use No Family Medical History Family Medical History Start: 05/24/18 15: 14 Freq: ONCE Status: Active Protocol: Document 05/24/18 15:54 PTSAI (Rec: 05/24/18 15:54 [id number]) Family Medical History Mother History Unknown Yes Physical Exam: General: Comfortable, not in acute distress. HEENT: HEAD: NC NT. ORAL CAVITY: Moist, pink tongue. EYE: Pupil PERRLA. EOMI. No pallor, no icterus. Neck: Supple, no JVD. Cardio: S1 and S2 Respiratory: CTAP Abdominal: soft NT ND BS present. Genital/Urinary: Mendoza catheter, CBI. Extremities: NCCE Neurological: AAO x3, Assessment: 1. Heamturia resolved, urine culture was negative, 2. BPH. 3. TURP. 4. HTN. 5. DM2. Plan: Will change rocephin to cipro po. IF ok with Dr David, may dc antibiotics. Thank you, Dr Mattson for involving me in taking care of this patient. Signed, Parvez Landis M.D. 250
--- NOTE | 2018-05-26 15:08 | Operative Report ---
DATE OF SURGERY: 05/25/2018 PREOPERATIVE DIAGNOSES: Urinary retention and benign prostatic hypertrophy. POSTOPERATIVE DIAGNOSES: Urinary retention and benign prostatic hypertrophy. SURGEON: Merissa David MD NAME OF PROCEDURE: Cystoscopy and TURP under general anesthesia. INDICATION: The patient is a 73-year-old patient who has retention and Mendoza for last 1 week. Because he was taking Plavix, he had to wait for a week before subjecting him to the cystoscopy. The patient and family understand the procedure, risks, complications, and options including bleeding, infection, stricture, recurrent BPH and a small incidence of incontinence. FINDINGS: Prostate was enlarged and obstructing the prostatic fossa completely with kissing lateral lobes meeting in the midline and overhanging anterior lobe. Bladder was unremarkable except for trabeculations. TURP was completed with the end result showing a wide open fossa and intact landmarks. Blood loss was about 100-150 mL. No complications. DESCRIPTION OF PROCEDURE: The patient was brought to the operating room, prepped and draped in the dorsal lithotomy position after general anesthesia was induced. After dilating the urethra, the bladder was entered and examined and the findings were noted. Continuous irrigating resectoscope was introduced with the bipolar cautery. Resection was begun on the right lobe at 9 o'clock position, moving down to the floor and then on the left lobe from 3 o'clock down to the floor. Next, the anterior lobe was resected followed by the apical tissue to complete the procedure. A small posterior and median lobe were taken down initially but were not significant. Capsule was maintained intact. Bleeding was minimal and well controlled. Chips were irrigated out periodically and at the end, a 3-way Mendoza was introduced after hemostasis was confirmed to obtain clear results. The patient was then returned to recovery in stable condition. JOB# [id number]
--- NOTE | 2018-05-26 20:00 | Progress Notes ---
DATE: 05/26/2018 HOSPITAL COURSE: The patient is postop day #1 after TURP, doing quite well with postop pain, Mendoza discomfort, but no significant bleeding or clotting. PHYSICAL EXAMINATION: VITAL SIGNS: Stable. He has been afebrile without any major issues. ABDOMEN: Soft. Bladder is well decompressed. Mendoza irrigation slow rate, is almost clear. LABORATORY DATA: Hemoglobin 10.8 down from 11.5 and white count 11.6. Platelet count is elevated chronically which may require Hematology evaluation. Electrolytes are unremarkable. Sugars are still elevated require better control. IMPRESSION: We will discontinue the irrigation in 2-3 hours. After that, he can be discharged with a Mendoza and a leg bag either tonight or tomorrow and see me next week for removal of the catheter. JOB# [id number]
--- NOTE | 2018-05-29 15:50 | Pathology Report ---
[id number] Collection date: 05/25/2018 Surgeon: Dr. Chinedu David Specimen Description: Prostate TURP Gross Description: Received in formalin are multiple irregular rubbery wynne-lunsford soft tissue fragments aggregating an area 3 x 2.5 x 2.2 cm. Totally submitted in 15 cassettes labeled A1 to A15. Microscopic Description: The histologic sections show multiple fragments of benign prostate tissue with areas of benign glandular and fibromuscular hyperplasia. A small portion of urothelial lining is also identified consistent with prostatic urethra. There is also chronic inflammation present consisting or mostly lymphocytes, consistent with chronic prostatitis. Diagnosis: Benign glandular and fibromuscular hyperplasia consistent with benign prostatic hypertrophy (TUR prostate). Comment: There is no evidence for malignancy. [facility]# [id number] MTDD
== END 2018-05-26 20:25 | DRG 713 ==
LOC: ER 12:24 → MSI 15:05 → ICU 05-25 16:01
PROVIDERS: ADMIT Internal Medicine; ATTEND Internal Medicine
PROC: 0VB08ZZ Excision of Prostate, Via Natural or Artificial Opening Endoscopic (ICD-10-PCS; principal; 2018-05-25)
DX: N40.1 Benign prostatic hyperplasia with lower urinary tract symptoms (principal); N39.0 Urinary tract infection, site not specified; R33.8 Other retention of urine; R31.9 Hematuria, unspecified; E11.9 Type 2 diabetes mellitus without complications; I10 Essential (primary) hypertension; E66.9 Obesity, unspecified; E78.5 Hyperlipidemia, unspecified; K21.9 Gastro-esophageal reflux disease without esophagitis; Z68.26 Body mass index [BMI] 26.0-26.9, adult; Z79.4 Long term (current) use of insulin
CPT/HCPCS: 36415-UA; 71045-TC; 80053-TC; 81001-TC; 82948-90; 85025-TC; 85610-TC; 93005; 96372; 96375; J0696; J1815; J2270; J2405; J2704; J2710; J3010; X6258; X7704; Z7610